=== PATIENT | female | born 1930 | race Caucasian/White ===

== ENCOUNTER 2020-04-20 10:20 | Inpatient (IN) | payer OTHER ==
[~2020-04-20] VITALS: Ht 153.6 cm; Wt 38.1 kg
[2020-04-20 10:22] VITALS: BP 137/54
[2020-04-20 10:50] LABS: BASO # 0.1 10*3/uL (0.0-0.1); BASO % 0.7 % (0.0-1.0); EOS % 0.1 % (1.0-4.0); HEMATOCRIT 27.9 % (37.0-47.0); LYMPH # 1.1 10*3/uL (1.3-4.4); LYMPH % 15.2 % (27.0-41.0); MEAN CELL VOLUME 75.8 fl (81.0-99.0); MEAN CORPUSCULAR HGB 21.2 pg (27.0-31.0); MEAN PLATELET VOLUME 9.8 fl (9.6-12.3); MONO # 0.6 10*3/uL (0.1-1.0); MONO % 8.1 % (3.0-9.0); NEUT # 5.5 10*3/uL (2.3-7.9); NEUT % 75.6 % (47.0-73.0); PLATELET COUNT AUTOMATED 408 10*3/uL (130-400); RED BLOOD COUNT 3.68 10*6/uL (4.10-5.10); RED CELL DISTRI WIDTH 17.7 % (0-14.5); WHITE BLOOD COUNT 7.3 10*3/uL (4.8-10.8)
[2020-04-20 11:03] LABS: BILIRUBIN Negative (Negative); BLOOD Negative (Negative); CLARITY Cloudy (Clear); COLOR Yellow (Yellow); GLUCOSE Negative (Negative); KETONE Negative (Negative); LEUKO ESTERASE 2+ (Negative); NITRITE Positive (Negative); PH 5.5 (4.5-8.0); SPECIFIC GRAVITY 1.015 (1.001-1.030)
[2020-04-20 11:06] LABS: ALBUMIN 3.3 gm/dl (3.1-4.5); ALKALINE PHOSPHATASE 72 U/L (45-117); BUN 15 mg/dl (7-24); CHLORIDE 111 mmol/L (98-107); CREATININE 0.86 mg/dL (0.55-1.02); POTASSIUM 3.2 mmol/L (3.5-5.1); SGOT/AST 12 IU/L (3-35); SGPT/ALT 11 U/L (12-78); SODIUM 147 mmol/L (136-145); TOTAL PROTEIN 6.4 gm/dL (6.4-8.2)
[2020-04-20 11:09] LABS: ETHYL ALCOHOL < 3.0 mg/dl (<3)
[2020-04-20 11:11] LABS: URINE AMPHETAMINES < 1000 (1000ng/ml); URINE BARBITURATES < 200 (200ng/ml); URINE BENZODIAZEPINES < 200 (200ng/ml); URINE CANNABINOIDS (THC) < 50 (50ng/ml); URINE COCAINE < 300 (300ng/ml); URINE METHADONE < 300 (300ng/ml); URINE OPIATES < 300 (300ng/ml); URINE PHENCYCLIDINE < 25 (25ng/ml)
[2020-04-20 11:16] LABS: BACTERIA 4+; WBC 51-100 wbc/hpf (0-5)
--- NOTE | 2020-04-20 11:30 | NUR ---
psychiatric assessment: client presents from [facility], where she just was placed about one day ago, she is very confused and anxious, she is not able to focus, she does not know where she is, she thinks that she came here to return a plate and then we made her come in here, she said she guesses she is getting a test, she is talking out and asking for anyone and everyone to come to her bedside and to call her because he is on his way to get her, she is not aggressive. she is not sleeping or eating. she is not suicidal, she believes that she resides with her in [facility], im not sure if the is living, the daughter is the healthcare POA. the [facility] here did speak with her daughter and the facility perhaps, yesterday. they had suggested that they try to let her get acclimated but the facility sent her here for a psychiatric assessment. i did speak with the u, they are going to consider the admission and let use know.
--- NOTE | 2020-04-20 11:36 | NUR ---
PT FRUSTRATED AND HOLLERING OUT, ALSO BANGING HER WRISTS ON SIDE OF BED RAIL.
[2020-04-20 11:45] LABS: RETICULOCYTE % 1.18 % (0.50-2.50)
[2020-04-20 11:59] LABS: IRON 124 ug/dL (50-170); TOTAL IRON BINDING CAPACITY 408 ug/dl (250-450)
--- NOTE | 2020-04-20 12:10 | NUR ---
SPOKE WITH PETTY FROM [facility] AND SHE STATES THEY WILL ACCEPT PT, SHE WILL CALL POA DAUGHTER JOSSELYN
--- NOTE | 2020-04-20 12:27 | NUR ---
PT OUT OF BED, REDIRECTED BACK TO BED, PROVIDED LUNCH.
--- NOTE | 2020-04-20 13:09 | NUR ---
OMA LIZETTE CELL NUMBER [phone]
--- NOTE | 2020-04-20 13:10 | NUR ---
DAUGHTER IS IN ROOM WITH PT AT THIS TIME.
--- NOTE | 2020-04-20 13:46 | NUR ---
KATHERYN BRYAN a 89 year old F admitted via wheel chair from the EMERGENCY ROOM as a voluntary by POA admission. Arrived on unit at 1346. ALLERGIES: NKA. Vital signs are: [id number] 170/70 SpO2 100% RA. The client's POA verbally consented to the following forms with stated understanding: Authorization For The Release of Medical Information, Clothing List, Consent to Voluntary Admission and Hospitalization, Consent and Release Forms/Receipt of Rights, Acknowledgement of Advance Directive Information, Behavioral Health Consent Form, and Informed Consent of Medications, witnessed by second RN. Admitted under the services of Dr. [facility]. A search was conducted and hazardous articles were removed. Client was oriented to the unit. PETTY MARTE
[2020-04-20] MEDS ORDERED: ASPIRIN ADULT L81 M2 PO (14:03)
[2020-04-20] MEDS ORDERED: BUSPIRONE15 MG PO (14:04)
[2020-04-20] MEDS ORDERED: Clopidogrel75 MG PO (14:04)
[2020-04-20] MEDS ORDERED: IRON325 M1 PO (14:05)
[2020-04-20] MEDS ORDERED: Hydralazine Hyd25 MG PO (14:06)
[2020-04-20] MEDS ORDERED: KLONOPIN0.5 MG PO (14:06)
[2020-04-20] MEDS ORDERED: FUROSEMIDE20 M1 PO (14:07)
[2020-04-20] MEDS ORDERED: METOPROLOL SUCC50 M1 PO (14:07)
[2020-04-20] MEDS ORDERED: POTASSIUM CHLO10 ME4 PO (14:08)
[2020-04-20] MEDS ORDERED: REMERON30 M1 PO (14:08)
[2020-04-20] MEDS ORDERED: RISPERIDONE0.25 M2 PO (14:10)
[2020-04-20] MEDS ORDERED: PRAVASTATIN SOD10 MG PO (14:10)
[2020-04-20] MEDS ORDERED: RIVASTIGMINE TAR3 M1 PO (14:11)
[2020-04-20 14:17] VITALS: BP 170/70
--- NOTE | 2020-04-20 14:20 | NUR ---
CALLED HOSPITALIST #1, MADE AWARE OF NEW CONSULT FOR MEDICAL MANAGEMENT. SPOKE WITH DR. NICHOLS.
--- NOTE | 2020-04-20 14:30 | NUR ---
DR. SMITH ON UNIT TO ASSESS PT. AFTER THIS NURSE SPOKE WITH , CALIXTO, PT IS TO BE A DNRCC PER WISHES OF LIVING WILL. DR. SMITH SIGNED DNR-CC FORM, PLACED IN FRONT OF CHART.
--- NOTE | 2020-04-20 15:28 | NUR ---
ATIVAN INEFFECTIVE. PATIENT STILL ANXIOUS, RESTLESS AND PREOCCUPIED. WILL CONITNUE TO MONITOR.
--- NOTE | 2020-04-20 17:52 | NUR ---
pt increasingly restless and anxious. pt intrusive, grabbing onto other peers, attempting to enter their rooms. kayla no made aware of ativan ineffective, n.o. vistaril 50mg po q4h PRN
--- NOTE | 2020-04-20 18:48 | NUR ---
PATIENT IS IN QUIET ROOM FOLDING CLOTHES. PATIENT IS CALM AND FOCUSED. WILL CONTINUE TO MONITOR.
[2020-04-20 18:54] VITALS: BP 141/70
[2020-04-20 18:55] VITALS: BP 141/70
[2020-04-20 18:56] VITALS: BP 141/70
[2020-04-20 19:55] VITALS: BP 141/70
--- NOTE | 2020-04-20 22:04 | NUR ---
P-CONFUSION, INTRUSIVE I-REDIRECTION WITH 1:1 THERAPEUTIC INTERVENTIONS AND PRESENT REALITY. EDUCATE AND ENCOURAGE MEDICATION COMPLIANCE R-PATIENT MEDICATON COMPLIANT AT HS. PATIENT REFUSED NOURISHMENT BUT PROVIDED FLUIDS AT HS. PATIENT INTRUSIVE WITH OTHER PEERS AND TOUCHING OTHER PEERS. PATIENT GETTING DRESSED INAPPROPRIATELY. PATIENT PUTTING ON JACKET IF PUTTING ON PANTS. PATIENT WITH REDIRECTION PROVIDED THROUGHOUT SHIFT. PATIENT WITH NO HALLUCINATIONS OR DELUSIONS. PATIENT WITH NO HOMICIDAL OR SUICIDAL IDEATIONS. P-CONTINUE TO ENCOURAGE MEDICATION COMPLIANCE, CONTINUE TO PRESENT REALITY, ENCOURAGE GROUP THERAPY WHILE AWAKE
--- NOTE | 2020-04-21 05:50 | NUR ---
PATIENT SLEPT 6 HOURS OF INTERRUPTED SLEEP THROUGHOUT SHIFT. Q 15 MINUTE CHECKS MAINTAINED. 24 HR chart check completed.
[2020-04-21 07:00] VITALS: BP 140/78
[2020-04-21 07:34] LABS: THYROID STIM HORMONE (HS) 0.952 uIU/ml (0.358-4.75)
--- NOTE | 2020-04-21 09:43 | NUR ---
DR TUCKER ON UNIT TO ASSESS PATIENT, UPDATE PROVIDED.
--- NOTE | 2020-04-21 11:25 | NUR ---
P: PATIENT IS TIRED, SAD, DEPRESSED, ANXIOUS, RESTLESS. I: 1:1 FOR EMOTIONAL SUPPORT. PROVIDE SPACE NEEDED. ALLOW PATIENT TO VERBALIZE FEELINGS. R: PATIENT IS ALERT TO SELF ONLY. PATIENT IS PLEASANTLY CONFUSED. PATIENT STATES SHE IS SAD AND MISSES HER AND IS UNABLE TO UNDERSTAND WHY HE CANNOT VISIT. PATIENT STATES SHE IS ANXIOUS AND HAS BEEN PRAYING A LOT ABOUT IT. PATIENT DENIES SI/HI STATES "I DONT WANT TO HURT ANYBODY". PATIENT IS INTRUSIVE AND RESTLESS. PATIENT DOES PARTICIPATE DURING ASSESSMENT. PATIENT IS AMBULATORY WITH STEADY GAIT. PATIENT DENIES HALLUCINATIONS OR DELUSIONS. DOES NOT APPEAR TO BE RESPONDING TO INTERNAL STIMULI. PATIENT IS CONTINENT OF URINE SO FAR THIS SHIFT. PATIENT IS MEDICATION COMPLIANT WITH EDUCATION. P: WILL CONTINUE TO MONITOR MOODS/BEHAVIORS. Q15 MINUTE SAFETY CHECKS MAINTAINED. WILL CONTINUE TO ENCOURAGE MEDICATION COMPLIANCE. WILL CONTINUE TO ENCOURAGE GROUP ACTIVITIES. WILL CONTINUE TO PROVIDED 1:1 FOR EMOTIONAL SUPPORT AND PROVIDE SPACE NEEDED. SET UP FOR MEALS. INTAKES ARE GOOD WITH ADEQUATE FLUIDS. P
--- NOTE | 2020-04-21 12:18 | NUR ---
PSYCHO SOCIAL HX COMPLETED THIS DATE.
--- NOTE | 2020-04-21 13:01 | NUR ---
PATIENT IS FRANTIC, ANXIOUS, AND INTRUSIVE. PATIENT IS UNABLE TO CALM DOWN. SHE IS VERY WORRIED ABOUT HER , HER BELONGINGS. SHE IS EXTREMELY CONFUSED. UNABLE TO BE REDIRECTED. PATIENT FOLLOWING RN'S, HOUSEKEEPING, AND OTHER PATIENTS. PATIENT IS ACCUSING STAFF OF LYING. WILL CONTINUE TO MONITOR.
--- NOTE | 2020-04-21 13:33 | NUR ---
PRN ATIVAN ADMINISTERED PO FOR INCREASED ANXIETY. WILL CONTINUE TO MONITOR.
--- NOTE | 2020-04-21 15:30 | NUR ---
PATIENT IN DINING ROOM DISROBING. INFORMED PATIENT THAT WAS INAPPROPRIATE AND ATTEMPTED REDIRECTION BUT WAS UNSUCCESSFUL. PATIENT REMAINS VERY CONFUSED. WILL CONTINUE TO MONITOR.
--- NOTE | 2020-04-21 17:03 | NUR ---
PATIENT IS DISRUPTIVE AND INTRUSIVE IN DINING ROOM. PATIENT IS MAKING OTHER PATIENTS IRRITABLE AND ANGRY. PATIENT IS CONFUSED AND UNABLE TO BE REDIRECTED.
--- NOTE | 2020-04-21 19:48 | NUR ---
24 HR chart check completed.
[2020-04-21 20:00] VITALS: BP 154/75
--- NOTE | 2020-04-21 21:39 | NUR ---
P-CONFUSION, ANXIOUS, INTRUSIVENESS I-REDIRECT & REORIENT FREQUENTLY, ADMINISTER MEDS, MONITOR SLEEP R-PT IS CONFUSED WITH MEMORY DEFICITS. ALERT TO PERSON ONLY. SHE IS EXTREMELY HARD TO REDIRECT & HAS WANDERS IN & OUT OF PTS ROOMS. INTRUSIVE WITH PERSONAL SPACE. HAS FREQUENTLY ASKED, "WHERES LIZETTE?. WHEN'S HE COMING HOME". TOOK HS MEICATIONS WHOLE. P-CONTINUE TO MONITOR
--- NOTE | 2020-04-21 22:04 | NUR ---
PT RESTLESS. CONTINUES TO ATTEMPT TO WANDER IN & OUT OF OTHER PTS ROOMS DESPITE REDIRECTION. LOOKING FOR HER . MEDICATED WITH ATIVAN 1 MG PO @ 2151
--- NOTE | 2020-04-21 23:33 | NUR ---
ATIVAN HAS BEEN INEFFECTIVE. PT CONTINUES TO GET UP & LOOK FOR HER & ATTEMPTS TO GO INTO OTHER PTS ROOMS. MEDICATED WITH VISTARIL 50 MG PO @ 2320.
--- NOTE | 2020-04-22 01:45 | NUR ---
VISTARIL INEFFECTIVE. PT CONTINUES TO TO GET IN & OUT OF BED WITH CONFUSION OF LOOKING FOR HER & WANDERING & ATTEMPTING TO GO INTO OTHER PTS ROOMS. NUMEROUS DIRECTIVES GIVEN & PT IS UNRECEPTIVE & REPEATS HERSELF. BECOMES IRRITABLE & ANXIOUS WHEN REDIRECTED. MEDICATED WITH PRN GEODON 10 MG IM @ 0044
--- NOTE | 2020-04-22 05:38 | NUR ---
PT HAS SLLET PAST 129 WITH N SIGN
[2020-04-22 07:28] VITALS: BP 152/64
--- NOTE | 2020-04-22 08:30 | NUR ---
Treatment Plan meeting was held this a.m. with NEEL Mills, RN, AT, ALBERT-S and Public Works Commissioner. Plan for discharge Next Week. Pt. came to [facility] from [facility]. Will reach out to facility today to discuss discharge Planning.
--- NOTE | 2020-04-22 08:50 | NUR ---
Spoke with Nika at [facility]. Pt. family brought Pt. for a Skilled stay after PCP referral and Pt. was not very receptive to being admitted. Less than 24 hours later she was extremely anxious, wouldn't eat, dry heaving due to anxiety, Would not stay in her room. Family was called and they were possibly going to allow them to Put on PPE and sit with her in isolation due to the circumstance and that family declined saying that they felt her behaviors would not improve and it was not worth the risk. Medication adjustments were made with no resolution to anxiety or behaviors. [facility] states that they cannot meet Pt. needs Properly and she cannot return to the building and family was not willing to come sit with her. Nika is unsure if the Spiral Runner at [facility] has contacted the family to notify them that patient cannot return.
--- NOTE | 2020-04-22 11:46 | NUR ---
AM GROUP PT WAS PRESENT AT THE START OF MORNING GROUP THERAPY SEATED AT A TABLE STILL EATING BREAKFAST. PT WAS QUIET AND CONTENT BUT KEPT STATING THAT SHE NEEDED TO GET UP AND WALK. PT STOOD AND WAS VERY UNSTEADY. PT SAT IN A COMFY CHAIR AND WAS FEARFUL OF BEING ALONE. PT DID NOT WANT ME TO LEAVE HER SIDE. PT NEEDED TO USE THE RESTROOM BUT WANTED ME TO COME WITH HER. A NURSE TOOK HER, SHE WAS GONE LESS THAN 5 MINUTES AND UPON RETURN WANTED TO KNOW "WHERE IS THE GIRL THAT WAS JUST SITTING WITH ME?" PT IS PLEASANTLY CONFUSED AND NEEDED CONSTANT REMINDERS THAT SHE IS IN THE HOSPITAL AND SAFE. PT IS VERY FEARFUL OF BEING LEFT ALONE.
--- NOTE | 2020-04-22 12:07 | NUR ---
PT ANXIOUS AND RESTLESS. INTRUSIVE WITH PERSONAL SPACE AND OTHER PATIENTS. UNABLE TO REDIRECT PT. PT STATES SHE IS NERVOUS AND AFRAID TO BE ALONE. ONCE A PATIENT OR STAFF MEMBER WALKS AWAY THE PATIENT ANXIOUSLY SEEKS OUT OTHER STAFF OR PATIENTS. WHEN TOILETING PATIENT SHE WANTS STAFF TO STAY WITH HER UNTIL SHE IS DONE. PATIENT STATES HER STOMACH IS IN KNOTS FROM BEING ANXIOUS AT THIS TIME. PRN VISTARIL GIVEN AT THIS TIME TO DECREASE ANXIETY. WILL CONTINUE TO MONITOR PATIENT FOR EFFECTIVENESS OF MEDICATION.
--- NOTE | 2020-04-22 13:51 | NUR ---
PRN VISTARIL INEFFECTIVE. PT CONTINUES TO BE ANXIOUS. ATTEMPTED TO REDIRECT PT WITH WORD FINDS, PUZZLES, MUSIC, AND CARDS. ALL HAVE BEEN INEFFECTIVE. WILL CONTINUE TO MONITOR PT. PRN ATIVAN GIVEN AT THIS TIME. PT CONTINUES TO LOOK FOR HER , PURSE, KEYS, AND PARENTS. WILL MONITOR EFFECTIVENESS OF MEDICtion.
--- NOTE | 2020-04-22 14:38 | NUR ---
ativan effective at this time. pt sitting quietly while participating in group.
--- NOTE | 2020-04-22 14:59 | NUR ---
PT IN GROUP AND CONTINUES TO BE ANXIOUS. PT 1:1 WITH ACTIVITIES. EMBROIDERY FINISHER MADE A JOKE WITH ANOTHER PT AND THAT PT LAUGHED., THIS PATIENT YELLED AT THE OTHER PT FOR LAUGHING AT HER. ANOTHER PT LEFT THE DINNINGROOM AND THIS PT FOLLOWED AFTER HER. WHEN EXPLAINED TO THIS PT THAT THE OTHER PERSON IS A PATIENT WELL AND WANTS SOME ALONE QUIET TIME. THIS PT STATED "OH NO I DONT THINK SHE DOES". THIS PATIENT YELLINGDOWN THE SILVA FOR THE OTHER PT. PT REDIRECTED TO SIT WITH A STAFF IN A QUIET ROOM. EXPLAINED TO PT HOW SHE IS MAKING OTHER PTS FEEL. THIS PATIENT IS NOT RECEPTIVE AT THIS TIME. WILL CONTINUE TO MONITOR BEHAVIORS AT THIS TIME.
--- NOTE | 2020-04-22 15:16 | NUR ---
CALL PLACED TO DR LAMB REGARDING PT'S BEHAVIORS AND RECENT PRN MEDICATIONS. NEW ORDERS RECEIVED.
--- NOTE | 2020-04-22 15:21 | NUR ---
Spoke with pt's Suraj by phone. Gathered additional pt information. Informed Suraj that Itzel Corcoran [facility] search planner confirmed with Kevon Rodriguez that pt would not be able to return there. Discussed this further. Discussed other NF options. Suraj stated that he only wanted pt to be at [facility] or another NF in [facility]. When asked about [place] NFs, Suraj stated that he didn't care for any of them. Suraj then asked if this board writer would speak with his daughter Charly about this.
--- NOTE | 2020-04-22 15:29 | NUR ---
Spoke with pt's daughter Charly Monroy by phone. Discussed pt not being able to return to [facility]. Discussed discharge options. Charly would prefer pt not return home with pt's . Discussed NF options. Charly stated that pt is on a waiting list at [facility]. Charly would also be interested in [facility] or [facility] in [place] for pt.
--- NOTE | 2020-04-22 15:45 | NUR ---
PM GROUP PT WAS PRESENT FOR AFTERNOON GROUP THERAPY AND MANY ATTEMPTS WERE MADE TO ENGAGE PT IN ACTIVITIES. PT WAS VERY ANXIOUS AND REPEATED THE SAME QUESTIONS EVERY FEW SECONDS. PT WAS AGITATING PEERS, ONE KEPT LEAVING THE ROOM. PT COULD NOT BE REDIRECTED AND I WALKED HER TO HER ROOM AND BACK HOPING TO CALM HER. PT CONTINUED TO FRET AND WAS A DISRUPTION TO THE SHULTZ MILIEU. PT NURSE WAS NOTIFIED AND ADDRESSED THE ISSUE. PT DID TOUCH A MALE PEER AND KEPT INSISTING THAT HE WAS LAUGHING AT HER. PT HAD TO BE MOVED AWAY FROM THE PEER.
--- NOTE | 2020-04-22 16:11 | NUR ---
INTIAL CLINICALS FAXED TO [facility] [phone]
[2020-04-22 19:12] VITALS: BP 127/56
--- NOTE | 2020-04-22 21:27 | NUR ---
Patient alert to self only with confusion noted. Mood is confused and intrusive. No s/s of any responding to internal stimuli noted at this time. Patient compliant with HS medications without any difficulty. Attempted to provide emotional but patient refused. Redirected/reoriented multiple times when needed. Plan to continue to encourage medication compliance. Also continue to offer emotional support and continue to redirect/reorient when needed/appropriate. Will continue to monitor moods/behaviors. Q 15 minute safety checks continued and maintained. See [facility] flowsheet for further documentation.
--- NOTE | 2020-04-23 00:12 | NUR ---
24 HR chart check completed.
--- NOTE | 2020-04-23 05:42 | NUR ---
Patient slept approx. 5 hours of interrupted sleep throughout shift. Q 15 minute safety checks continued and maintained.
[2020-04-23 08:00] VITALS: BP 168/60
--- NOTE | 2020-04-23 08:30 | NUR ---
Treatment Plan meeting was held this a.m. with Dr. Epperson via telephone, MANAGER EXCHANGE Lina, RN, AT, SHOES HAND SEWER-S and Jig Mill Operator. Plan for discharge Next Week. Pt. requires Alternate Placement due to [facility] being unable to meet Pt needs. Pt. daughter has requested referrals to [facility].
--- NOTE | 2020-04-23 08:59 | NUR ---
PATIENT STILL ASLEEP AT THIS TIME. Q 15 MINUTE SAFETY CHECKS MAINTAINED.
--- NOTE | 2020-04-23 09:58 | NUR ---
PT AWOKE AND HAS INCREASED CONFUSION. PT CONTINUES TO ASK WHERE LIZETTE IS. EXPLAINED TO THE PT THAT HER IS AT HOME AND SHE IS IN THE HOSPITAL. PT STATED NO THATS NOT RIGHT. PT UNRECEPTIVE TO REORIENTATION. PT BELIEVES SOMETHING IS WRONG. ASSURED PT THAT SHE IS SAFE AND IN THE HOSPITAL AND HER IS SAFE AT HOME. PT REFUSED BREAKFAST AT THIS TIME. WILL CONTINUE TO MONITOR PT WITH Q15 MINUTE SAFETY CHECKS.
--- NOTE | 2020-04-23 11:00 | NUR ---
PHYSICAL THERAPY Physical Therapy evaluation completed on 3N with full evaluation to follow. Low complexity skilled PT evaluation per chart review and evaluation, [address]. Recommend physical therapy per plan of care and SNF upon discharge. Thank you for this referral. Jayashree Christine,PT,DPT
--- NOTE | 2020-04-23 11:38 | NUR ---
P: CONFUSION, BANGING ON THE TABLE, IRRITABLE, ANXIOUS, RESTLESS, DISRUPTIVE. I: 1:1 FOR EMOTIONAL SUPPORT. REDIRECTION/REORIENTATION NEEDED. ALLOW PATIENT TO VERBALIZE FEELINGS. R: PATIENT ALERT TO SELF ONLY. VERY CONFUSED. PATIENT IS ASKING EVERY FEW SECONDS "WHERE IS MY MOM I KNOW SHE WAS HERE WITH ME, WHERE DID SHE GO" PATIENT HAS BEEN REORIENTED/REDIRECTED MULTIPLE TIMES WITHOUT ANY SUCCESS. PATIENT IS BECOMING AGITATED AND IS BANGING ON THE TABLE SAYING "I WANT MY MOTHER". PATIENT UNABLE TO SIT STILL, VERY FIGETY. MEDICATION COMPLIANT WITH EDUCATION. PATIENT IS IN GERICHAIR AT THIS TIME D/T INCREASED CONFUSION AND MEDICATION. SET UP FOR MEALS. 1 ASSSIT WITH ACTIVITIES OF DAILY LIVING. PATIENT IS BOTH CONTINENT AND INCONTIENT OF BLADDER THIS SHIFT. PATIENT DID PARTICIPATE IN GROUP ACTIVITY. P: WILL CONTINUE TO MONITOR MOODS/BEHAVIORS. WILL ENCOURAGE MEDICATION COMPLIANCE. WILL ENCOURAGE GROUP ACTIVITY. Q15 MINUTE SAFETY CHECKS CONTINUED AND MAINTAINED.
--- NOTE | 2020-04-23 11:41 | NUR ---
AM GROUP PT WAS PRESENT FOR MORNING GROUP THERAPY BUT IS UNABLE TO PARTICIPATE AT THIS TIME DUE TO COGNITIVE IMPAIRMENT. PT WAS VERY CONFUSED AND ANXIOUS BUT NOT BAD YESTERDAY. PT ASKED THE SAME QUESTIONS OVER AND OVER AGAIN AND WENT FROM BEING A YOUNG GIRL WANTING HER MOTHER TO WANTING TO SEE HER . PT COULD NOT BE REDIRECTED BUT WOULD PAUSE FOR A FEW MINUTES BEFORE ASKING AGAIN.
--- NOTE | 2020-04-23 13:00 | NUR ---
PT TOILETED AT THIS TIME. PT ANXIOUSAND LOOKING FOR LIZETTE. ATTEMPTED TO LET PT TALK TO LIZETTE ON THE PHONE; HOWEVER IT WAS NOT EFFECTIVE. PT BECAME MORE ANXIOUS BUT WAS REDIRECTABLE.
--- NOTE | 2020-04-23 13:20 | NUR ---
OT NOTE Occupational therapy order received, chart reviewed, and attempted to see patient on the [facility] this afternoon. Patient was seated in the heriberto chair upon arrival and was lethargic. She responded to her name however would not maintain opened eyes for greater than 10-15 seconds with verbal and tactile cues to arouse. Patient declining an OT evaluation at this time stating "I'm too tired...and is my coming to get me?" Discussed with nurse that patient was lethargic and did not want to participate in therapy at this time. Per nursing staff, patient was more alert and walking with the FWW this AM. Will check back at a later date for completion of an OT eval. Thank you. Holly Phelps, OTR/L
--- NOTE | 2020-04-23 13:33 | NUR ---
ARASELI VALENZUELA RESIDENT CARE AID ON UNIT TO ASSESS PATIENT, UPDATE PROVIDED.
--- NOTE | 2020-04-23 15:42 | NUR ---
PM GROUP PT WAS PRESENT FOR AFTERNOON GROUP THERAPY FULLY RECLINED IN A DAKSHA CHAIR SLEEPING. PT WAS NOTED TO SNORE AND DID NOT WAKE DURING GROUP.
--- NOTE | 2020-04-23 15:49 | NUR ---
PATIENT REPEATEDLY SAYING "BUT DO I HAVE TO GO TO THE HOSPITAL TODAY?" THIS NURSE REORIENTED AND REDIRECTED PATIENT WITH NO SUCCESS. PATIENT REMAINS CONFUSED. PATIENT GETTING ANXIOUS, STATES "I CAN'T BE GOING TO THE HOSPITAL TONIGHT" "IM AT HOME, I CANT BE AT A HOSPITAL" AND "I DONT UNDERSTAND". PT ASKING REPEATEDLY "WHEN IS LIZETTE COMING HOME?" WILL CONTINUE TO REORIENT/REDIRECT PATIENT. Q15 MINUTE SAFETY CHECKS MAINTAINED AND CONTINUED.
[2020-04-23 19:20] VITALS: BP 132/68
--- NOTE | 2020-04-23 22:21 | NUR ---
P-INTRUSIVE/DISRUPTIVE, RESTLESS, YELLING OUT. I-PROVIDED FREQUENT REORIENTATION, REDIRECTION AND 1:1 EMOTIONAL SUPPORT. HS SNACK GIVEN AND FLUIDS. ADLS X1 ASSIST TOILETING PROVIDED. ADMINISTERED MEDICATIONS PER PHYSICIANS ORDERS. OFFERED REST AND REPOSITIONING. R-REORIENTATION, REDIRECTION AND 1:1 SOMEWHAT EFFECTIVE. HS SNACK CONSUMED 100%, ASSISTED TO TOILET CONTINENT OF URINE. PT RESTING IN BED AT THIS TIME. MEDICATION COMPLIANT. P-WILL CONTINUE TO PROVIDE REDIRECTION NEEDED. WILL CONTINUE TO MONITOR FOR MOODS AND BEHAVIORS. Q 15 MIN CHECKS MAINTAINED.
--- NOTE | 2020-04-24 03:16 | NUR ---
24 HR chart check completed.
--- NOTE | 2020-04-24 05:31 | NUR ---
PT SLEPT PAST 2230 WITH 2 BRIEF AWAKENINGS FOR TOILETING.
--- NOTE | 2020-04-24 07:30 | NUR ---
PHYSICAL THERAPY Patient was resting soundly in bed when approached for therapy and per discussion with [facility] staff was informed that patient did not sleep much due to having a bad night. Staff requested Therapist to check back later today to attempt treatment and will continue per POC as able. Bill Powell, PRODUCTION COUNTER
[2020-04-24 07:41] VITALS: BP 148/58
--- NOTE | 2020-04-24 09:15 | NUR ---
ARASELI VALENZUELA CNP ON UNIT TO ASSESS PATIENT.
--- NOTE | 2020-04-24 11:37 | NUR ---
P: DEPRESSED MOOD WITH CONFUSION. PATIENT STATED "YES, I FEEL A LITTLE DEPRESSED" I: ONE ON ONE FOR EMOTIONAL SUPPORT, REDIRECTION/ORIENTATION PROVIDED. ENCOURAGE TO ATTEND GROUP SESSION. R: PATIENT IS ALERT TO PERSON WITH CONFUSION. LONG/SHORT TERM MEMORY DEFICITS. MOOD IS DEPRESSED. DENIES ANY HALLUCINATIONS, DELUSIONS, HI/SI OR PAIN. MEDICATION COMPLAINT. Q 15 MINUTE SAFETY CHECKS MAINTAINED. 1 PERSON ASSIST WITH ACTIVITIES OF DAILY LIVING, CONTINENT OF BOWEL AND BLADDER. SET UP FOR MEALS WITH ONE ASSIST. INTAKES ARE FAIR WITH ENCOURAGEMENTTO DRINK FLUIDS. 1 PERSON ASSIST WITH AMBULATION DUE TO UNSTEADY GAIT. NO AGGRESSION OBSEVERED. P: CONTINUE TO MONITOR FOR AGGRESSION, MOOD; PROVIDE ONE ON ONE, REDIRECTION/ORIENTATION AND ENCOURAGE TO ATTEND GROUP SESSIONS.
--- NOTE | 2020-04-24 11:40 | NUR ---
AM GROUP/MOVIE PT WAS PRESENT FOR MORNING GROUP THERAPY RECLINED IN A DAKSHA CHAIR NAPPING. PT WOKE AND HAD SOMETHING TO EAT. PT WAS MUCH MORE CALM THIS MORNING, LESS ANXIOUS, AND REDIRECTABLE. PT WAS NOTED TO BE SHAKING HER HEAD SEVERAL TIMES IF TO BE "CLEARING" IT. PT NURSE WAS NOTIFIED. PT EXHIBITED NO ADVERSE BEHAVIORS WHILE IN GROUP.
--- NOTE | 2020-04-24 12:32 | NUR ---
PASRR completed online in [facility]. Requires Level two assessment. [facility]
--- NOTE | 2020-04-24 14:35 | NUR ---
Occupational Therapy evaluation completed on 3 with full eval to follow. Precautions include fall risk;bed/chair alarm,delusional,anxious, min a transfers, min/mod assist for ADLs, moderate complexity level 07996. Recommend OT to determine best ability to function and 24 hr supervision/assist and /or LTC upon d/c. Thank you for this referral. Meggan Mccollum OTR/L
--- NOTE | 2020-04-24 15:04 | NUR ---
Pt was reclining in a gerichair this AM and calling to this report writer to come to her. Pt appeared anxious and asked this report writer multiple times "Am I okay? Am I going to be alright?" Reassured pt. Pt requested that this report writer not leave her. Remained with pt and continued to calm her. Pt complained of being cold. Wrapped pt in a heated blanket, which assisted in calming pt.
--- NOTE | 2020-04-24 15:22 | NUR ---
Spoke with Sherice Peng at [facility] and [facility]. Pt. is known to them and has previously been at [facility]. Pt. insurance is out of Network and Pt. would not have a Skillable Need. Family would have to Private Pay. Advised that we would speak to family and discuss discharge Plans.
--- NOTE | 2020-04-24 15:38 | NUR ---
PM GROUP PT WAS PRESENT FOR AFTERNOON GROUP THERAPY RECLINED IN A DAKSHA CHAIR SITTING NEXT TO HER NURSE. PT WAS CONSTANTLY ASKING THE SAME QUESTIONS AND STATING OVER AND OVER AGAIN, "I WANT TO GO, WHY WON'T YOU LET ME GO HOME, YOU'RE TRYING TO KILL ME" PT COULD NOT BE REDIRECTED. PT WAS TAKEN FOR A WALK AND THIS DID NOT HELP. PT BECAME AGITATED AND BEGAN POUNDING ON THE ARM OF THE CHAIR, POUNDING HER FEET, ATTEMPTING TO GET UP ON HER OWN AND BECOMING VERBALLY ABUSIVE. PT REQUESTED TO WALK AND WAS FOLLOWED CLOSELY SHE USED THE WALKER. PT WAS VERY UNSTEADY AND THREATENED TO RUN THE WALKER INTO THE WALL OR THROW IT OUT OF THE WINDOW.
--- NOTE | 2020-04-24 17:22 | NUR ---
P: YELLING OUT, BEING DISRUPTIVE TO OTHER, REPEATIVE, WANTING TO LEAVE, UNABLE TO REDIRECT, UP AND DOWN FROM DAKSHA CHAIR TO BED WITH ASSIST, BECOMING MORE IRRITABLE AND DEMANDING. I: REDIRECTION/ORIENTATION, ONE ON ONE, ACTIVITY PROVIDED, CHANGE OF ENVIRONMENT. R: INEFFECTIVE. PRN VISTARIL 50MG PO GIVEN. P: CONTINUE TO MONITOR BEHAVIORS AND MONITOR EFFECTIVENESS OF PRN MEDICATION.
[2020-04-24 19:09] VITALS: BP 160/60
--- NOTE | 2020-04-24 21:25 | NUR ---
P-INTRUSIVE/DISRUPTIVE, RESTLESS, YELLING OUT. I-ASSESSED FOR SI/HI, HALLUCINATIONS/DELUSIONS AND/OR PARANOIA. PROVIDED FREQUENT REORIENTATION, REDIRECTION AND 1:1 EMOTIONAL SUPPORT. HS SNACK REFUSED BUT ACCEPTED FLUIDS. ADLS X1 ASSIST TOILETING PROVIDED. ADMINISTERED MEDICATIONS PER PHYSICIANS ORDERS. OFFERED REST AND REPOSITIONING. R-DENIES SI/HI, NO HALLUCINATION, DELUSIONS AND OR PARANOIA NOTED. PT ACCEPTED REORIENTATION, REDIRECTION AND 1:1 EMOTIONAL SUPPORT. ASSISTED TO TOILET CONTINENT OF URINE. PT RESTING IN BED AT THIS TIME. MEDICATION COMPLIANT. P-WILL CONTINUE CURRENT TREATMENT PLAN. WILL CONTINUE TO PROVIDE REDIRECTION NEEDED. WILL CONTINUE TO MONITOR FOR MOODS AND BEHAVIORS. Q 15 MIN CHECKS MAINTAINED.
--- NOTE | 2020-04-24 23:26 | NUR ---
PT UPSET, YELLING OUT, BANGING ON FURNITURE, ANXIOUS AND AGITATED. PROVIDED REDIRECTION, REORIENTATION, AND 1:1 EMTIONAL SUPPORT. ALL NON-PHARMACOLOGICAL INTERVENTIONS INEFFECTIVE. PRN VISTARIL 50MG PO GIVEN.
--- NOTE | 2020-04-25 00:26 | NUR ---
PT SHOWERED AND TOILETED. RESTING IN BED AT THIS TIME. PRN VISTARIL EFFECTIVE.
--- NOTE | 2020-04-25 00:45 | NUR ---
24 HR chart check completed.
--- NOTE | 2020-04-25 05:44 | NUR ---
PT SLEPT APPROX 6 HOURS WITH INTERMITTENT AWAKENINGS.
--- NOTE | 2020-04-25 07:15 | NUR ---
PHYSICAL THERAPY Patient seen this am for therapy visit and was just awakening supine in bed upon therapist arrival. Patient identified by name / and joined by OT captain assistant for observation as patient transfers supine to sit EOB, CGA x 1. Patient was initially a little sluggish needing a minute or so of static EOB to collect herself. Patient completed sit to stand CGA and ambulated with use of wh walker, CGA, 75'x 1, demonstrating slow, cautious gait pattern and mild R side gait deviationn / drifting. Patient received v/c for increased stride and "head up" posture and returned to Pratima chair in activity room with body alarm for safety. Patient remained under U staff Supervision awaiting breakfast and will continue per POC as tolerated, total treatment time 14 minutes. Bill Powell, SUPERVISOR MAILS
--- NOTE | 2020-04-25 07:20 | NUR ---
OT NOTE Prior to coming to the floor spoke with nurse Colmenares and reported that therapy was coming to treat this pt. Nurse gave approval. Pt was seen this A.M. 1:1 for 20 minute OT session with INSIDE SALES TERRITORY MANAGER and nursing staff present for observation only. Upon arrival pt was supine in bed. Pt identified by name and and had no complaints at this time other than fatigue. Pt transferred supine to sit EOB with SBA. While sitting EOB pt doffed gown and donned pants and shirt with Kelly for inital start over her toes and arms. Sit to stand completed from bed level with Kelly due to low surface with use of w/w for UE support. Upon inital rise pt presented with retrograde posture that required Kelly to correct. Challenged pt's static standing tolerance needed for increased I in self care tasks and functional transfers, pt was able to tolerate aprox 4 minutes at a time before sitting due to fatigue. Functional mobility completed to the dining mast with CGA and use of w/w where she was left sitting upright inthe jose chair with body alarm activated and under U staff supervision. COntinue with rec D/C plan to SNF/LTC. YARELI Nava/Sri
[2020-04-25 08:00] VITALS: BP 146/56; BP 160/73
[2020-04-25 08:25] VITALS: BP 146/56
--- NOTE | 2020-04-25 09:00 | NUR ---
Treatment Plan meeting was held this a.m. with Dr. Epperson RN, AT, IMPORT/EXPORT AGENT-S and Wall Taper Helper in attendance. Plan for discharge Next week. Working on Placement. Will reach out to family today to discuss discharge Planning.
--- NOTE | 2020-04-25 09:16 | NUR ---
ON UNIT TO SEE PT AT THIS TIME, UPDATE GIVEN. PT AWAKE, ALERT AND VERBAL. RESPS EASY AND EVEN ON ROOM AIR. ATE BREAKFAST. NO DISTRESS NOTED.
--- NOTE | 2020-04-25 11:44 | NUR ---
AM GROUP PT WAS PRESENT FOR MORNING GROUP THERAPY SEATED IN A DAKSHA CHAIR WORKING A PUZZLE WITH A NURSE. PT WAS FRETFUL BUT ABLE TO BE DIRECTED BACK TO THE PUZZLE FOR A SHORT PERIOD. NURSING STUDENTS ENTERED AND ONE SAT AND WORKED WITH PT. PT WAS WOOZY, FIGHTING SLEEP AND ATTEPTED TO STAND SEVERAL TIMES. PT WAS REPEATEDLY STATING, "PLEASE DON'T LEAVE ME." "HOLD MY HAND" PT WAS FULLY RECLINED, GIVEN WARM BLANKETS AND WAS ABLE TO FALL ASLEEP.
--- NOTE | 2020-04-25 13:16 | NUR ---
Pt requiring very frequent/nearly constant one one one attention from staff d/t anxious and restless behaviors. Pt repetitive, continually stating "Someone, help me! Am I ok? Don't be mad at me, Aniyah. Aniyah, don't yell at me". Advised pt no one is angry with her or yelling at her. Advised pt she is in the hospital and we are here to help. Pt ate only a few bites of lunch despite encouragement and help from staff. Pt asked to go to the bathroom, this RN assisted pt to bathroom. Pt continent of urine, no BM at this time, pt noted passing gas, +BSx4 quadrants. Pt then asking repeatedly to lay down in bed, pt states "I just want to lay down and take a nap". This RN assists pt to bed to position of comfort, warm blankets given, education provided re: fall risk precautions. Pt states "Ok. I won't get up. Anderson you come get me when it's time to eat?" Advised pt this RN would get her for dinner. Bed alarm activated. Within 5 minutes bed alarm sounding, this RN to pt's room immediately. Pt getting up unassisted. Pt again reminded of fall risk precautions. This RN attempts to assist pt to wheelchair, pt states "No. I want to lie down". RN attempts to take pt to bed. As soon as pt sees the bed she states "No. I want to get up". Again this RN assists pt to w/c and up to nurse's station for close monitoring. Pt now fixated on her watch. Pt is unreceptive to redirection or reality presentation at this time. Pt remains in front of nurse's station for close observation by RN.
--- NOTE | 2020-04-25 14:36 | NUR ---
Pt remains very confused with extremely poor short-term memory. Pt was pleasant with this typewriter ribbon winder during breakfast as this typewriter ribbon winder assisted pt with her breakfast. Later, pt continually requested her watch. It was decided by RN that pt could have her watch. This typewriter ribbon winder provided pt with her watch. Pt voiced appreciation and then asked if it was truly her watch.
--- NOTE | 2020-04-25 14:58 | NUR ---
P- CONFUSED, RESTLESS, ANXIOUS, CALMS WITH 1:1 I- ORIENTATION, MOOD AND BEHAVIORS ASSESSED. PROVIDED WITH FREQUENT REORIENTATION AND REDIRECTION, EMOTIONAL SUPPORT AND 1:1 NEEDED. MEDICATIONS GIVEN ORDERED. ASSISTANCE WITH ADL CARE PROVIDED NEEDED. R- PT IS ALERT WITH CONFUSION. RESPS EASY AND EVEN ON ROOM AIR. MOOD ANXIOUS AT TIMES WITH FLAT AFFECT. SPEECH IS SOFT, COHERENT, ABLE TO MAKE NEEDS KNOWN WITHOUT DIFFICULTY. PT DENIES SI/HI, INTENT OR PLAN. PT DENIES HALLUCINATIONS, NO RESPONSE TO INTERNAL STIMULI NOTED. PT FEARFUL AT TIMES, STATES "I'M SCARED". PT UNABLE TO STATE WHAT IT IS THAT SHE IS AFRAID OF. PT FIXATES ON DIFFERENT THINGS THROUGHOUT THE DAY SUCH HER WATCH, GETTING A BATH, WHAT TIME DINNER IS AND GOING TO BED. FREQUENT REORIENTATION, REDIRECTION, 1:1 AND EMOTIONAL SUPPORT PROVIDED. ASSURED PT SHE IS SAFE HERE IN THE HOSPITAL. PT IS MEDICATION COMPLIANT. COMPLIANT WITH HOC. NO AGGRESSIVE BEHAVIORS. NO DISTRESS NOTED. P- PLAN TO CONTINUE CURRENT TREATMENT.
--- NOTE | 2020-04-25 15:59 | NUR ---
Spoke with Patient Daughter Charly via telephone. Notified that [facility] are unable to skill pt. due to Cognitive needs and Pt. does not have a secondary Payor at this time so she would need to be Private Pay. Daughter states If Pt. is Private Pay she would prefer she is in a [place] Facility. Daughter states that Pt. is on the waiting List at [facility]. Call placed to facility and Spoke with Sierra Emery Wheel Worker and Bias Binding Folder who states she is on the Short List but the facility is currently in Outbreak Mode and they will notify family when a bed becomes available. Sierra asked that the daughter call her tommorow to discuss the waiting list.
--- NOTE | 2020-04-25 16:16 | NUR ---
[facility] returns. Pt. is approved for Nursing Facility. Copy placed on Chart.
--- NOTE | 2020-04-25 17:10 | NUR ---
NO BM X3 DAYS. MOM 30ML PO GIVEN AT THIS TIME FOR RELIEF OF CONSTIPATION. +BSX4. PT WITH NO COMPLAINTS. WILL MONITOR FOR EFFECT.
--- NOTE | 2020-04-25 17:54 | NUR ---
DR. PATE NOTIFIED OF MANUAL BP 170/68 WITH PULSE OF 65.
--- NOTE | 2020-04-25 18:02 | NUR ---
PT CONTINUES TO BE EXTREMELY ANXIOUS AND RESTLESS. PT REQUIRING CONTINUOUS ONE ON ONE ATTENTION FROM STAFF D/T BEHAVIORS. PT HAS POOR SAFETY AWARENESS, CONTINUALLY TRYING TO GET UP AND WALK DESPITE EXTREMELY UNSTEADY GAIT REQUIRING STAFF TO REMAIN AT PT'S SIDE AT ALL TIMES TO ENSURE SAFETY. PT ASKING THE SAME QUESTIONS REPEATEDLY, ALL ATTEMPTS TO REDIRECT PT INEFFECTIVE. PT'S BEHAVIORS AND ANXIETY CONTINUING TO INCREASE. PT BANGING HANDS ON FURNITURE, CHAIRS AND WINDOWS. FOOD AND FLUIDS GIVEN, TOLIETED, SEVERAL ACTIVITIES GIVEN ALL WITHOUT ANY POSITIVE EFFECT. THIS RN HAS REMAINED AT PT'S SIDE, FEEDING PT DINNER. PT STATES "THAT'S NOT REAL FOOD. THIS ISN'T A REAL HOSPITAL. THERE ARE NO DOCTORS OR NURSES". ADVISED PT THIS RN WAS A NURSE. PT STATES "NO. YOU'RE NOT. WHY ARE WE EATING ALL THIS FOOD?". UNABLE TO REDIRECT OR CALM. NOTIFIED VIA PHONE WITH NEW ORDERS RECIEVED FOR PRN THORAZINE 25MG PO/IM Q4H PRN.
--- NOTE | 2020-04-25 18:31 | NUR ---
Pt behaviors continue requiring this RN to remain at pt's side at all times offering continual intervention. Pt very anxious, restless, unredirectable. Pt given PRN Thorazine 25mg PO for increased anxiety/agitation and Apresoline 10mg PO x1 dose per for elevated BP. Will monitor for effect.
[2020-04-25 19:45] VITALS: BP 170/68
--- NOTE | 2020-04-25 20:04 | NUR ---
HAVE CLIENT SITTING IN FRONT OF NURSES DESK. APPEARS DECREASED ANXIETY LONG SHE CAN SEE STAFF AT ALL TIMES. WILL CONTINUE EMOTIONAL SUPPORT.
--- NOTE | 2020-04-25 20:30 | NUR ---
TOILETED FOR URINE OUTPUT ONLY. ASKED TO GO TO BED BUT BECAME EXTREMELY AGGITATED AND UPSET WHEN PLACED IN BED. BROUGHT BACK TO NURSES STATION.
--- NOTE | 2020-04-25 22:00 | NUR ---
ASSITED TO BED AT CLIENTS REQUEST. GLASSES ON BEDSIDE. POSITION OF COMFORT. WILL MONITOR.
--- NOTE | 2020-04-26 00:11 | NUR ---
24 HR chart check completed.
--- NOTE | 2020-04-26 05:03 | NUR ---
HAD LARGE FORMED DARK COLORED STOOL. CLEANED UP AND ASSISTED BACK TO BED. REMAINS CONFUSED.
--- NOTE | 2020-04-26 06:16 | NUR ---
SLEPT 6 HOURS
[2020-04-26 06:49] LABS: BASO # 0.1 10*3/uL (0.0-0.1); BASO % 0.8 % (0.0-1.0); EOS # 0.1 10*3/uL (0.0-0.4); EOS % 0.7 % (1.0-4.0); HEMATOCRIT 29.1 % (37.0-47.0); LYMPH # 1.2 10*3/uL (1.3-4.4); LYMPH % 16.3 % (27.0-41.0); MEAN CORPUSCULAR HGB 20.9 pg (27.0-31.0); MEAN CORPUSCULAR HGB CONC 27.8 g/dl (33.0-37.0); MEAN PLATELET VOLUME 10.1 fl (9.6-12.3); MONO # 0.6 10*3/uL (0.1-1.0); MONO % 8.6 % (3.0-9.0); NEUT # 5.4 10*3/uL (2.3-7.9); NEUT % 73.3 % (47.0-73.0); PLATELET COUNT AUTOMATED 415 10*3/uL (130-400); RED BLOOD COUNT 3.88 10*6/uL (4.10-5.10); RED CELL DISTRI WIDTH 19.2 % (0-14.5); WHITE BLOOD COUNT 7.3 10*3/uL (4.8-10.8)
--- NOTE | 2020-04-26 06:55 | NUR ---
PHYSICAL THERAPY Per conversation with U Nurse, therapist informed that patient had just fallen asleep after multiple episodes of increased Agitation throughout the night. Nurse requested to hold therapy this am to allow patient to sleep and will continue per POC at a later time as able. Bill Powell, HOOP FLARING MACHINE OPERATOR HELPER
[2020-04-26 07:14] LABS: BUN 18 mg/dl (7-24); CHLORIDE 110 mmol/L (98-107); POTASSIUM 4.1 mmol/L (3.5-5.1); SODIUM 142 mmol/L (136-145)
[2020-04-26 07:38] VITALS: BP 138/70
--- NOTE | 2020-04-26 09:00 | NUR ---
ARASELI VALENZUELA ON UNIT TO ASSESS PATIENT. UPDATE PROVIDED. NEW ORDERS IN PLACE.
--- NOTE | 2020-04-26 09:54 | NUR ---
CHRISS BURCIAGA UPDATED WITH EKG RESULT. REVIEWED AM MEDICATIONS, STATES TO HOLD TOPROL XL D/T BRADYCARDIA.
--- NOTE | 2020-04-26 10:46 | NUR ---
HELD KLONOPIN AND BETA ALIZE DUE TO LOW HEART RATE AND BEING EXTREMELY TIRED. PATIENT IS EASY TO AROUSE. Q 15 MINUTE SAFETY CHECKS MAINTAINED AND CONTINUED.
--- NOTE | 2020-04-26 12:00 | NUR ---
SPEECH THERAPY ON UNIT TO ASSESS PATIENT DURING LUNCH, UPDATE PROVIDED.
--- NOTE | 2020-04-26 13:47 | NUR ---
SPEECH THERAPY Patient referred for bedside swallowing evaluation due to patient coughing with liquids. Patient has PMHx s/f dementia, CVA, CAD, HTN, and anxiety. Nursing staff reported she has displayed poor intake and nurse has recently noticed patient coughing on liquids. She is currently on a regular diet. Patient was assessed at lunchtime meal. Upon arrival, patient was reclined in her chair in the quiet room. Nursing staff assisted in re-positioning patient to upright at 90 degrees. Patient was pleasant and cooperative throughout session, with significant confusion displayed. She frequently asked what she was doing here, "what's vallejo" with her, and reported persistently that she was cold with blankets provided. Patient followed simple single-step verbal commands to [facility] which revealed mild impairments in labial, lingual, and buccal strength, ROM, and coordination. She elicited a functional volitional swallow but did not produce volitional cough. Patient's meal tray consisted of grilled cheese, pudding, tangerine slices, and coffee. Patient consumed approximately half of her grilled cheese sandwich, which she consumed without difficulty, although she demonstrated an increase in masticiation time. She did not wish to consume additional food items. Patient consumed sips of coffee by cup. She independently took small, single sips of her coffee, with no over s/s of penetration/aspiration observed across each trial. Patient did not wish to consume any additional drink items, and wanted to only consume her warm coffee. Patient overall demonstrated safety and tolerance of current diet. Recommend she remain on present diet, with recommendation made for selection of softer food items. Recommend universal safe swallowing strategies including sitting upright during all PO intake, taking small bites and sips, and alternating between solids and liquids. Speech therapy will provide follow up treatment at 1-2 additional meals to ensure patient demonstrates carryover of swallow strategies including small sips with additional liquids other than warm coffee which often tends to be consumed in smaller, single sips. Result and recommendations shared with patient's nurse who verbalized understanding. Thank you for your consultation. Barbi Rg MA CCC-LEAD ASSISTANT MANAGER
--- NOTE | 2020-04-26 14:26 | NUR ---
24 G IV TO LEFT FOREARM BY RN FROM SURGERY. CATHETER IS INTACT AND PATENT. WILL CONTINUE TO MONITOR.
--- NOTE | 2020-04-26 14:32 | NUR ---
PATIENT PULLED HER IV OUT. CATHETER WAS INTACT. WILL CONTINUE TO MONITOR.
--- NOTE | 2020-04-26 14:32 | NUR ---
Referrals faxed to [facility] and [facility] at family request.
--- NOTE | 2020-04-26 14:35 | NUR ---
RN left pt to retrieve IV fluids from med room, upon RN's immediate return to the pt, pt had pulled out her IV. Pt states "I didn't do it. I don't know who did that". Catheter tip intact. Pt refusing IV reinsertion, states "No. Don't do that again". Pt alert, active, attempting to climb out of chair and walk unassisted despite frequent redirection. Staff remains at pt's side for safety. Erika BURCIAGA updated, came to unit and assessed, states to d/c IV fluids.
--- NOTE | 2020-04-26 16:51 | NUR ---
P: PATIENT IS ANXIOUS, CONFUSED, INTRUSIVE/DISRUPTIVE, RESTLESS AND YELLING OUT. I: 1:1 FOR EMOTIONAL SUPPORT. SPACE PROVIDED NEEDED. ALLOW PATIENT TO VERBALIZE FEELINGS. REDIRECT/REORIENT NEEDED. ENCOURAGE MEDICATION COMPLIANCE. R: INEFFECTIVE. PATIENT REMAINS CONFUSED. PATIENT IS ALERT AND ORIENTED TO SELF ONLY. PATIENT IS UNABLE TO BE REDIRECTED/REORIENTED. PATIENT IS VERY ANXIOUS. SHE IS PREOCCUPIED WITH . PATIENT IS ASKING QUESTIONS LIKE "HOW DO I EAT FOOD WHEN I KNOW MY PARENTS ARE " "HOW AM I GOING TO EAT THEN GO HOME BY MYSELF AND ?" "I HAVE TO KNOW HOW TO ." PATIENT IS VERY WORRIED AND ONE MINUTE THINKS HER PARENTS ARE ALIVE AND THE NEXT MINUTE SHE IS IN REALITY AND KNOWS THEY HAVE PASSED. SHE IS FEELING SAD OVER THIS. PATIENT DENIES ANY SI/HI. PATIENT DENIES ANY HALLUCINATIONS OR DELUSIONS AND DOES NOT APPEAR TO BE RESPDONDING TO ANY INTERNAL STIMULI. PATIENT IS A 1 ASSIST WITH ACTIVITES OF DAILY LIVING AND FOR TRANSFERS. PATIENT USES [employer]. SET UP FOR MEALS. INTAKES ARE FAIR WITH ADEQUATE FLUIDS. PATIENT IS MEDICATION COMPLIANT WITH EDUCATION. PATIENT IS CONTINENT OF BLADDER. P: Q15 MINUTE SAFETY CHECKS MAINTAINED. WILL CONTINUE TO ENCOURAGE MEDICATION COMPLIANCE. WILL CONTINUE TO ENCOURAGE FOODS/FLUIDS.
[2020-04-26 19:40] VITALS: BP 137/62
--- NOTE | 2020-04-26 23:06 | NUR ---
P-CONFUSION. DISRUPTIVE OF UNIT. PT YELLING OUT FOR LIZETTE AND ATTEMPTING TO HIT ON FURNITURE. I-REORIENT AND PRESENT REALITY. PROVIDE 1:1 WITH THERAPEUTIC INTERVENTIONS. ENCOURAGE MEDICATION COMPLIANCE AND EDUCATE. PROVIDE ADL CARE. MONITOR SLEEP. R-PATIENT ALERT TO SELF, CONFUSED. PT RESTLESS THIS HS, CONTINUES TO YELL OUT FOR LIZETTE DESPITE MULTIPLE REORIENTATION ATTEMPTS. PATIENT ALSO REQUIRES FREQUENT REDIRECTON TO NOT HIT ON FURNITURE, GRAB AT STAFF AND PEERS, AND TO NOT AMBULATE WITHOUT ASSISTANCE DUE TO UNSTEADY GAIT. PT BROUGHT NEAR NURSES STATION IN DAKSHA CHAIR DUE TO LACK OF SAFETY AWARENESS. PATIENT MEDICATION COMPLIANT WHEN PLACED IN APPLESAUCE, UNABLE TO EDUCATE DUE TO COGNITION. PT ASSIST X1 WITH HOC, ALL NEEDS ANTICIPATED BY STAFF. INCONTINENT/CONTINENT OF BOWEL AND BLADDER. PT CURRENTLY LAYING DOWN IN BED, EYES CLOSED, RESPIRATIONS EASY AND REGULAR, NO DISTRESS NOTED. P-CONTINUE TO MONITOR MOOD AND BEHAVIORS, MAINTAIN Q 15 MIN CHECKS AND PRN FOR SAFETY.
--- NOTE | 2020-04-26 23:50 | NUR ---
PATIENT AWAKE, TOILETED PER REQUEST WITH X1 STAFF AND THEN ASSISTED BACK IN BED. PT THEN STARTED TO YELL OUT FOR LIZETTE, STATING "I NEED TO GO GET LIZETTE, HE HAS TO GO TO WORK" AND "I NEED TO GO GET THE CHILDREN". PT ATTEMPTING TO GET OUT OF BED TO AMBULATE WITHOUT ASSISTANCE, GAIT UNSTEADY. PT UNRECEPTIVE TO REDIRECTION OR REORIENTATION. PT BROUGHT UP BY NURSES STATION IN A DAKSHA CHAIR AT THIS TIME DUE TO LACK OF SAFETY AWARENESS. WILL CONTINUE TO MONITOR FOR ESCALATING BEHAVIORS.
[2020-04-27 07:47] VITALS: BP 156/61
--- NOTE | 2020-04-27 09:14 | NUR ---
Patient resting quietly with no c/o discomfort. Respirations easy and regular. Vital signs stable. No overt distress. PETTY MARTE
--- NOTE | 2020-04-27 10:15 | NUR ---
on unit to see pt at this time.
[2020-04-27 12:00] LABS: BILIRUBIN Negative (Negative); BLOOD Negative (Negative); COLOR Yellow (Yellow); GLUCOSE Negative (Negative); KETONE Negative (Negative); LEUKO ESTERASE Trace (Negative); NITRITE Negative (Negative); PH 5.5 (4.5-8.0); SPECIFIC GRAVITY 1.015 (1.001-1.030)
[2020-04-27 12:14] LABS: CLARITY Clear (Clear)
[2020-04-27 12:16] LABS: EPITHELIAL CELLS 0-2; MUCOUS TRACE; RBC 0-2 rbc/hpf (0-2)
--- NOTE | 2020-04-27 12:27 | NUR ---
The patient continues to yell out, incontinence care provided by staff at this time. pt calm and cooperative during care. PETTY MARTE
--- NOTE | 2020-04-27 14:19 | NUR ---
P- SIGNIFICANT CONFUSION AND MEMORY GAPS. RESTLESS, ANXIOUS, INTRUSIVE AND DISRUPTIVE. FREQUENT YELLING OUT. UNABLE TO REDIRECT. BECOMES AGITATED AND BANGS ON VANN AND FURNITURE AT TIMES. POOR SAFETY AWARENESS. DEPRESSED MOOD. I- ORIENTATION, MOOD AND BEHAVIORS ASSESSED. MEDICATIONS ADMINISTERED PER PHYSICIAN'S ORDERS. ASSISTANCE WITH ADL CARE PROVIDED. NUMEROUS DIFFERENT STRATEGIES ATTEMPTED TO EASE PT'S ANXIETY AND RESTLESSNESS. FREQUENT ONE ON ONE ATTENTION FROM STAFF NEEDED TO ENSURE SAFETY. R- PT IS ALERT AND ORIENTED TO SELF ONLY, OTHERWISE PT IS SIGNIFICANTLY CONFUSED WITH VERY POOR MEMORY RECALL. PT ASKS THE SAME QUESTIONS REPEATEDLY AND FIXATES ON VARIOUS TOPICS. UNREDIRECTABLE PT DOES NOT ACCEPT REALITY PRESENTATION. PT BELIEVES SHE IS A MUCH YOUNGER AGE, BELIEVES SHE NEEDS TO GET DRESSED FOR SCHOOL AND FIXATED FOR A FEW HOURS ON GETTING A KISS FROM HER MOM FOR HER BIRTHDAY. PT IS ANXIOUS AND RESTLESS, REPEATEDLY STATES "WONT YOU JUST TAKE ME HOME? GET ME OUT OF HERE? I DON'T BELONG HERE. WHY ARE YOU HOLDING ME HERE?" MULTIPLE AND FREQUENT ATTEMPTS TO REORIENT PT ARE FUTILE. PT STATES "NO. THIS ISN'T A HOSPITAL AND I'M NOT SICK. YOU AREN'T A NURSE. I DON'T NEED TO BE HERE. YOU'RE DOING SOMETHING WRONG". PT CALMS SLIGHTLY WITH STAFF AT HER SIDE, WHEN STAFF MUST STEP AWAY TO ASSIST OTHER PTS THIS PT BECOMES EXTREMELY ANXIOUS, YELLS OUT CONTINUALLY AND ATTEMPTS TO GET UP AND AMBULATE UNASSISTED DESPITE UNSTEADY GAIT. FREQUENT EDUCATION PROVIDED RE: SAFETY PRECAUTIONS TO PREVENT FALLS. PT INTRUSIVE AND DISRUPTIVE D/T YELLING OUT AND ATTEMPTS TO GRAB ONTO PT'S WHO WALK PAST HER SHE STATES "CAN YOU HELP ME GET OUT OF HERE?" PT DOES BECOME SLIGHTLY AGITATED AT TIMES UPON REDIRECTION, BANGING HER HANDS/FISTS OFF THE CHAIR AND VANN. DISCOURAGED PT FROM THIS BEHAVIOR D/T RISK OF HURTING HERSELF. PT STATES "I DON'T CARE". PT DOES ADMIT TO FEELING DEPRESSED, AFFECT IS FLAT. PT DENIES SI/HI, INTENT OR PLAN. PT DENIES HALLUCINATIONS. NO RESPONSE TO INTERNAL STIMULI NOTED. NO DISTRESS NOTED. P- PLAN TO CONTINUE CURRENT TREATMENT.
--- NOTE | 2020-04-27 17:23 | NUR ---
PT DECLINED DINNER, STATES "I DON'T FEEL GOOD. I CAN'T EAT". AT FIRST PT PROVIDES VAGUE COMPLAINTS. THIS RN ATTEMPTS TO ASSESS PT TO DETERMINE WHY SHE ISN'T FEELING WELL. PT THEN STATES "IT'S MY STOMACH. IT HURTS". ASKED PT TO POINT TO THE LOCATION OF THE PAIN, PT POINTS ALL OVER ABDOMINAL AREA. PT STATES "IT FEELS TIGHT LIKE". ABDOMEN NOTED TO BE DISTENDED AT THIS TIME, +BSX4. ABDOMINAL TENDERNESS NOTED. CALL PLACED TO , UPDATED, RECIEVED ORDER FOR STAT ABDOMINAL KUB. ORDER READ BACK AND VERIFIED.
--- NOTE | 2020-04-27 18:33 | NUR ---
notified with KUB result. States she will discuss with and enter any new orders if needed. Pt now stating repeatedly, "Ma'am, it's feeling better. I know it's feeling better. It's getting better. I'm gonna get up". RN remains near pt's side to ensure safety.
--- NOTE | 2020-04-27 19:40 | NUR ---
ON UNIT AT THIS TIME TO ASSESS PATIENT, UPDATE PROVIDED. STATED TO HOLD ALL HS MEDICATIONS AT THIS TIME AND MAKE PATIENT NPO. ALSO STATED THAT IF NEEDED TO UTILIZE PRN IM ATIVAN 1MG IF PATIENT HAS INCREASED AGITATION OR ANXIETY, IF PRN ATIVAN DOES NOT WORK TO GIVE IM GEODON ORDERED. NO OTHER ORDERS RECEIVED AT THIS TIME, WITNESSED BY 2ND RN AND MARKET RESEARCH COORDINATOR.
--- NOTE | 2020-04-27 19:47 | NUR ---
PATIENT OFF UNIT TO CT AT THIS TIME WITH THIS RN AND SECURITY X1.
--- NOTE | 2020-04-27 19:58 | NUR ---
PATIENT BACK FROM CT AT THIS TIME.
[2020-04-27 20:00] VITALS: BP 142/70
[2020-04-27 21:00] LABS: BASO # 0.1 10*3/uL (0.0-0.1); BASO % 0.8 % (0.0-1.0); EOS # 0.1 10*3/uL (0.0-0.4); EOS % 0.8 % (1.0-4.0); HEMATOCRIT 27.1 % (37.0-47.0); LYMPH # 1.2 10*3/uL (1.3-4.4); LYMPH % 13.1 % (27.0-41.0); MEAN CELL VOLUME 75.1 fl (81.0-99.0); MEAN CORPUSCULAR HGB 21.3 pg (27.0-31.0); MEAN CORPUSCULAR HGB CONC 28.4 g/dl (33.0-37.0); MEAN PLATELET VOLUME 10.4 fl (9.6-12.3); MONO # 0.8 10*3/uL (0.1-1.0); MONO % 8.4 % (3.0-9.0); NEUT # 7.2 10*3/uL (2.3-7.9); NEUT % 76.7 % (47.0-73.0); PLATELET COUNT AUTOMATED 433 10*3/uL (130-400); RED BLOOD COUNT 3.61 10*6/uL (4.10-5.10); RED CELL DISTRI WIDTH 19.4 % (0-14.5); WHITE BLOOD COUNT 9.3 10*3/uL (4.8-10.8)
[2020-04-27 21:12] LABS: ALBUMIN 3.1 gm/dl (3.1-4.5); ALKALINE PHOSPHATASE 84 U/L (45-117); BUN 16 mg/dl (7-24); CHLORIDE 112 mmol/L (98-107); CREATININE 0.66 mg/dL (0.55-1.02); LIPASE 128 U/L (73-393); POTASSIUM 3.9 mmol/L (3.5-5.1); SGOT/AST 14 IU/L (3-35); SGPT/ALT 12 U/L (12-78); SODIUM 143 mmol/L (136-145); TOTAL PROTEIN 6.1 gm/dL (6.4-8.2)
--- NOTE | 2020-04-27 21:32 | NUR ---
CALLED UNIT, STATED SHE REVIEWED THE LABS AND THE CT, THAT IT IS OKAY TO GIVE PATIENT HS MEDICATIONS AND THAT SHE WILL ALSO BE PUTTING IN A NEW ORDER FOR MIRALAX AND A STOOL SOFTENER. PT ALSO NO LONGER NPO AT THIS TIME. THEN STATED TO PASS ON TO AM SHIFT TO SEE IF ITS POSSIBLE TO GET A PREVIOUS CT RESULT FOR COMPARISON. NO OTHER ORDERS RECEIVED.
--- NOTE | 2020-04-27 22:54 | NUR ---
P-CONFUSION. ANXIOUS. DISRUPTIVE OF UNIT. I-REORIENT AND PRESENT REALITY. PROVIDE 1:1 WITH THERAPEUTIC INTERVENTIONS. ENCOURAGE MEDICATION COMPLIANCE AND EDUCATE. PROVIDE ADL CARE. MONITOR SLEEP. R-PATIENT ALERT TO SELF, CONFUSED. PT RESTLESS THIS HS, CONTINUES TO YELL OUT FOR LIZETTE OR "HELP ME" DESPITE MULTIPLE REORIENTATION ATTEMPTS AND ALL NEEDS BEING MET. PATIENT ALSO REQUIRES FREQUENT REDIRECTION TO NOT HIT ON FURNITURE, GRAB AT STAFF AND PEERS, AND TO NOT AMBULATE WITHOUT ASSISTANCE DUE TO UNSTEADY GAIT. PT BROUGHT NEAR NURSES STATION IN DAKSHA CHAIR DUE TO LACK OF SAFETY AWARENESS. PT ASSIST X1-2 WITH HOC, ALL NEEDS ANTICIPATED BY STAFF, INCONTINENT/CONTINENT OF BOWEL AND BLADDER. NO PHYSICAL COMPLAINTS VOICED. PT CURRENTLY LAYING BACK IN THE DAKSHA CHAIR WITH EYES CLOSED, RESPIRATIONS EASY AND REGULAR, NO DISTRESS NOTED. P-CONTINUE TO MONITOR MOOD AND BEHAVIORS. MAINTAIN Q 15 MIN CHECKS AND PRN FOR SAFETY.
--- NOTE | 2020-04-27 23:49 | NUR ---
SMALL SKIN TEAR NOTED ON RIGHT OUTTER FOREARM, MEASUREMENTS NOTED IN WOUND SCREEN. EDGES APPROXIMATED. TUBE WRAPPER NOTIFIED AT 2340. CALIXTO ASIF UPDATED AT 2345. UPDATED AND NOTIFIED OF NEEDING WOUND ORDERS AT 2348. STATED SHE WILL PUT IN ORDERS AT THIS TIME. CLEAN DRY DRESSING APPLIED.
--- NOTE | 2020-04-28 06:00 | NUR ---
24 hour chart check completed.
--- NOTE | 2020-04-28 07:17 | NUR ---
SLEPT APPROX 6 HOURS UNINTERRUPTED THIS SHIFT.
[2020-04-28 08:00] VITALS: BP 198/76
--- NOTE | 2020-04-28 08:06 | NUR ---
NOTIFIED OF MANUAL BP OF 198/76 PULSE 80 WITH AM VITALS. PER DR. QUIÑONES GIVE AM MEDS ORDERED AND SHE WILL ORDER STAT EKG. NO SIGNS OF DISTRESS NOTED.
--- NOTE | 2020-04-28 08:42 | NUR ---
NOTIFIED DR. QUIÑONES THAT EKG RESULTS ARE AVAILABLE PULSE [address] QUIÑONES HOLD METOPROLOL AND SHE WILL REVIEW THE EKG.
--- NOTE | 2020-04-28 10:12 | NUR ---
UPDATED DR. QUIÑONES ON MANUAL BP RECHECK OF 202/[address] QUIÑONES SHE WILL REVIEW AND PUT IN ORDERS.
--- NOTE | 2020-04-28 10:20 | NUR ---
ON UNIT TO SEE PT AT THIS TIME, UPDATED WITH BP 202/80, HR 60. PT NOW PRESENTING WITH MOIST COUGH DR. SIMMONS. NEW ORDERS RECIEVED FOR STAT PORTABLE CXRAY AND CLONODINE 0.1MG PO X1. STATES TO REASSESS BP IN ONE HOUR. DISCUSSED WITH THAT BOILER ENGINEER RN TALKED WITH DAUGHTER ABOUT MASS IN [place]. DAUGHTER REPORTED TO RN THAT THEY WERE UNAWARE OF THIS.
--- NOTE | 2020-04-28 10:40 | NUR ---
RECEIVED CALL FROM DR BAIRD. PER DR BAIRD THE CHEST XRAY LOOKS GOOD, CONTINUE TO MONITOR PT FOR S/S OF ASPIRATIONS. PT IN VIEW OF NURSES STATION, RESTING COMFORTABLY.
[2020-04-28 11:01] LABS: BASO # 0.1 10*3/uL (0.0-0.1); BASO % 0.7 % (0.0-1.0); EOS # 0.1 10*3/uL (0.0-0.4); EOS % 0.8 % (1.0-4.0); HEMATOCRIT 32.3 % (37.0-47.0); LYMPH # 0.9 10*3/uL (1.3-4.4); LYMPH % 11.8 % (27.0-41.0); MEAN CELL VOLUME 76.9 fl (81.0-99.0); MEAN CORPUSCULAR HGB 21.2 pg (27.0-31.0); MEAN CORPUSCULAR HGB CONC 27.6 g/dl (33.0-37.0); MEAN PLATELET VOLUME 10.2 fl (9.6-12.3); MONO # 0.6 10*3/uL (0.1-1.0); MONO % 8.1 % (3.0-9.0); NEUT # 5.9 10*3/uL (2.3-7.9); NEUT % 78.3 % (47.0-73.0); PLATELET COUNT AUTOMATED 464 10*3/uL (130-400); RED CELL DISTRI WIDTH 19.5 % (0-14.5); WHITE BLOOD COUNT 7.5 10*3/uL (4.8-10.8)
[2020-04-28 11:13] LABS: BUN 15 mg/dl (7-24); CHLORIDE 111 mmol/L (98-107); CREATININE 0.68 mg/dL (0.55-1.02); POTASSIUM 4.3 mmol/L (3.5-5.1); SODIUM 142 mmol/L (136-145)
--- NOTE | 2020-04-28 11:28 | NUR ---
NOTIFIED DR. QUIÑONES PTS LAB RESULTS ARE AVAILABLE, DR. QUIÑONES WILL REVIEW.
--- NOTE | 2020-04-28 12:47 | NUR ---
MANUAL BP RECHECKED 144/60, AFTER ONE TIME CLONIDINE 0.1MG PO.
--- NOTE | 2020-04-28 14:33 | NUR ---
NOTIFIED DR. MTZ OF MANUAL BP RECHECK OF 144/60, NO FURTHER ORDERS.
--- NOTE | 2020-04-28 15:58 | NUR ---
P-INTRUSIVE/DISRUPTIVE, RESTLESS, ANXIOUS, YELLING OUT, MEMORY DEFICITS, SAFETY UNAWARENESS. I-ASSESSED MOOD AND BEHAVIORS. ATTEMPTED NUMEROUS DIFFERENT INTERVENTIONS TO EASE ANXIETY. CONSTANT REDIRECTION, REORIENTATION AND 1:1 EMOTIONAL/SAFETY SUPPORT. ADMINISTERED MEDICATIONS PER PHYSICIANS ORDERS. ASSISTED WITH TOTAL ADLS X2 STAFF. R-ALL THERAPUETIC INTERVENTIONS INEFFECTIVE. PT REQUIRED CONSTANT 1:1 OTHER THAN WHEN ASLEEP. MEDICATION COMPLIANT. PT TOILETED CONTINENT OF URINE. P-WILL CONTINUE TO MONITOR MOOD AND BEHAVIORS. WILL CONTINUE TO USE THERAPUETIC INTERVENTIONS. Q 15 MIN CHECKS MAINTAINED AND PRN.
--- NOTE | 2020-04-28 19:41 | NUR ---
P--CONFUSION,ANXIETY I--TRIED 1:1 BUT UNABLE DUE TO INCREASED CONFUSION. R-- I WANT MY MOM AND DAD. CAN I GO TO BED. HELP ME P- WILL MONITOR FOR CHANGES IN MOOD/BEHAVIOR AND Q15 MINS AND PRN FOR SAFETY. CONTINUE EMOTIONAL SUPPORT
[2020-04-28 20:00] VITALS: BP 147/70
--- NOTE | 2020-04-29 02:12 | NUR ---
24 HR chart check completed.
--- NOTE | 2020-04-29 06:39 | NUR ---
UP IN DAKSHA CHAIR. POUNDING ON TRAY CONTINUOUSLY YELLING FOR J[place] AND SAYING I DON'T WANT TO GO TO [facility]. UNABLE TO REORIENT. WOUND CARE IN TO SEE CLIENT. PLACED IN QUIET ROOM IN FRONT OF NURSES DESK FOR CLOSER MONITORING
--- NOTE | 2020-04-29 07:15 | NUR ---
PHYSICAL THERAPY Patient seen this am for therapy visit and was sitting semi reclined in Pratima chair upon therapist arrival. Patient identified by name / and joined by OT prosthetics assistant this morning for observation only. Patient reports no new c/o's and repeatedly voiced she wanted to go home and see her Mother. Patient needed multiple v/c's to focus on task while transfering sit to stand at handrail with MIN A. Patient ambulated RN ALLERGY/CGA, 60'x 1 to bathroom, demonstrating bouts of unsteady gait pattern, decreased stride and required MIN A during all 90/180 turns to avoid risk of falling. Patient returned to her Pratima chair in activity room and remained with semi reclined with body alarm / lap tray under U staff Supervision. Will continue per POC as tolerated, total treatment time 16 minutes. Bill Powell, TREE PRUNER
--- NOTE | 2020-04-29 07:30 | NUR ---
OT NOTE Prior to coming to the floor spoke with nurse and reported that therapy was coming to treat this pt. Nurse gave approval. Pt was seen this A.M. 1:1 for 15 minute OT session with PUBLIC RELATIONS REPRESENTATIVE and nursing staff present for observation only. Upon arrival pt was sitting upright in the jose chair. Pt identified by name and and had no complaints at this time. While seated pt donned B socks with SBA. Sit to stand completed from chair level with Kelly followed by functional mobility to the bathroom with Kelly hand held. pt presented with bouts of unsteady stance that required Kelly to correct. Pt then stood sink side while washing her hands with Kelly due to being unsteady. Functional mobility completed back to the jose chair with Kelly hand held. Throughout entire session pt required constant verbal prompts for attention to task due to constant yelling out of "take me home to my mom." Pt was left sitting upright in the dining mast in the jose chair under [facility] staff supervision with lap tray in place and body alarm activated for safety. COntinue with rec D/C plan to SNF/LTC. YARELI Nava/Sri
[2020-04-29 07:36] VITALS: BP 127/72
--- NOTE | 2020-04-29 08:27 | NUR ---
Patient resting quietly with no c/o discomfort. Respirations easy and regular. Vital signs stable. No overt distress. PETTY MARTE
--- NOTE | 2020-04-29 08:29 | NUR ---
PT IS ANXIOUS, YELLING OUT, CONFUSED. PT 1:1 WITH STUDENT NURSE AT THIS TIME, FREQUENT REDIRECTION AND REORIENTATION PROVIDED. BRIGHT LIGHT THERAPY INITIATED. PT PROVIDED WITH WORD SEARCH ACTIVITY. PT CALMS WITH 1:1, PT IS STATING THAT SHE IS TIRED AND WANTS TO GO HOME. PT IS REFUSING TO COMPLETE WORD SEARCH. REDIRECTION AND REORIENTATION INEFFECTIVE, PT BECOMES ARGUMENTATIVE. WILL CONTINUE TO REDIRECT AND REORIENT APPROPRIATE. WILL CONTINUE TO PROVIDE EMOTIONAL SUPPORT. Q15 MIN MONITORING PER POLICY FOR SAFETY.
--- NOTE | 2020-04-29 09:00 | NUR ---
Treatment Plan meeting was held this a.m. with Dr. Epperson, NEEL Mills, RN, AT, SPRING FORMER-S and Plant Technician/Control Room Operator in attendance. Plan for discharge this week. Pt. is for Placement. Referrals faxed to [facility] facilities on [facility] Will follow with those facilities today.
--- NOTE | 2020-04-29 14:16 | NUR ---
Family meeting this AM with pt's daughter Charly Monroy, Itzel Corcoran LPN category planner, and this SECURITY OPERATIONS MANAGER-S. Discussed pt's current status and discharge needs. Reviewed pt's meds. Explored discharge options further. Charly stated that she was going to futher discuss discharge needs with pt's . Possible discharge plans are [facility] or [facility]. Charly stated that pt's is now more accepting that pt should not return home. Will await return call with [facility] preference.
--- NOTE | 2020-04-29 14:22 | NUR ---
Spoke with Sherice Arboleda for [facility] concerning referrals to [facility] and [facility]. Requesting Additional Clinicals faxed to facilities. Sasha is Reviewing.
--- NOTE | 2020-04-29 14:24 | NUR ---
SPEECH PATHOLOGY Treatment was attempted this pm during lunchtime meal. Patient had already finished lunch and was reportedly back in bed, therefore was unable to be seen for treatment this date. Staff reported that patient has been eating well, with good intakes and no overt difficulty. Treatment will continue tomorrow to ensure safe tolerance of meals. MISA LOPEZ MSCCC-ACUTE CARE CLINICAL NURSE SPECIALIST
--- NOTE | 2020-04-29 15:28 | NUR ---
Further Updates faxed to the [facility].
--- NOTE | 2020-04-29 15:38 | NUR ---
PM GROUP PT WAS PRESENT FOR AFTERNOON GROUP THERAPY BUT IS UNABLE TO PARTICIPATE IN ANY ACTIVITY DUE TO COGNITIVE IMPAIRMENT. PT WAS CONSTANTLY YELLING OUT, MAKING DEMANDS OF GOING TO BED, GOING TO SLEEP, GOING HOME, CALLING FOR HER , REQUESTING ONE THING AND THEN NOT WANTING IT AND SO ON. NURSING STUDENTS WERE HELPFUL IN DISTRACTING PT FOR A FEW MINUTES AT A TIME. PT BEGAN BANGING ON A TABLE WHICH HAD TO BE MOVED AND BANGING ON THE ARM OF HER CHAIR DEMANDING TO GO TO BED.
--- NOTE | 2020-04-29 17:15 | NUR ---
PT HAS BEEN INCREASING ANXIETY. PT IS YELLING OUT, CHILDLIKE IN TONE. PT BANGING ON TABLES, KICKING, SPITTING, THROWING FOOD. PT IS DEMANDING, REPETITIVE, INTRUSIVE. ATTEMPTED TO LAY PT IN BED, PROVIDE HOC, CALM MUSIC, LOW LIGHTING, WARM BLANKETS. REDIRECTION AND REORIENTATION. ALL INTERVENTIONS INEFFECTIVE. DR. LAMB MADE AWARE OF VISTARIL AND THORAZINE THE ONLY TWO PRN MEDICATIONS AVAILABLE. DR. LAMB STATES THAT VISTARIL HAS BEEN INEFFECTIVE IN THE PAST AND PT DID NOT TOLERATE THORAZINE WELL. DR. LAMB STATES TO DISCONTINUE CURRENT VISTARIL AND THORAZINE PRN MEDICATIONS. N.O HALDOL 2.5 MG PO OR IM Q4H. WITNESSED BY SECOND RN. ORDER PLACED IN COMPUTER AND HALDOL 2.5MG ADMINISTERED PO AT THIS TIME. PT COMPLIANT WITHOUT DIFFICULTY. WILL CONTINUE TO MONITOR PT'S MOOD, BEHAVIORS, AND FOR EFFECTIVENESS AND SIDE EFFECTS OF N.O. PT ASKED TO GET BACK UP AT THIS TIME, BROUGHT TO DINING ROOM FOR SUPPER AT THIS TIME. Q15 MIN MONITORING PER POLICY FOR SAFETY.
--- NOTE | 2020-04-29 17:55 | NUR ---
PT CURRENTLY SITTING IN QUIET AREA YELLING OUT, SLAMMING THE DOOR. PRN INEFFECTIVE AT THIS TIME. WILL CONTINUE TO MONITOR.
[2020-04-29 19:15] VITALS: BP 150/82
--- NOTE | 2020-04-29 20:57 | NUR ---
HALDOL 2.5MG IM GIVEN AT 2028PM DUE TO CLIENT SPITTING PILLS OUT, CONTINUOUS YELLING AND POUNDING. SHE APPEARS VERY DISTRAUGHT THAT WE ARE UNABLE TO REDIRECT OR PROVIDE EMOTIIONAL SUPPORT FOR. C/O PAIN IN HAND DUE TO CONTINUOUS POUNDING ON TABLE. INJECTION GIVEN FOR CLIENTS RELIEF BUT AT THIS TIME IT HAS BEEN INEFFECTIVE. CONTINUE TO MONITOR FOR CHANGES IN MOOD/BEHAVIOR AND Q15 MINS FOR SAFETY.
--- NOTE | 2020-04-30 00:17 | NUR ---
24 HR chart check completed.
--- NOTE | 2020-04-30 00:49 | NUR ---
UP IN CHAIR SHE CLIMBED OUT OF BED TWICE. BROUGHT TO QUIET ROOM IN FRONT OF NURSES STATION FOR SAFETY. UNABLE TO REORIENT. WILL CONTINUE TO MONITOR
--- NOTE | 2020-04-30 05:54 | NUR ---
TOILETED AND DRESSED FOR THE DAY. PO FLUIDS PROVIDED.
--- NOTE | 2020-04-30 06:19 | NUR ---
PATIENT SLEPT 3-4 HOURS INTERRUPTED THROUGHOUT SHIFT. Q 15 MINUTE CHECKS MAINTAINED
--- NOTE | 2020-04-30 07:15 | NUR ---
PHYSICAL THERAPY Patient seen this am for therapy visit and sitting up in quiet room Pratima chair upon therapist arrival. Patient identified by name / and joined by OT process assistant for observation only. Patient needed repeated v/c's to focus on task this morning as she voiced multiple times her need to go change her clothes and "please don't leave me". Patient transfers sit to stand CGA and ambulates JUNIOR ACCOUNT EXECUTIVE/CGA 50'x 2 to bathroom, demonstrating slow, cautious gait pattern, including mild LOB in bathroom during 180 degree turn around. Patient returned to her Pratima chair in Quiet room across from Nursing station with lap tray and body alarm, under [facility] staff Supervision. Will continue per POC as tolerated, total treatment time 16 minutes. Bill Powell, UTILIZATION SUPERVISOR
--- NOTE | 2020-04-30 07:25 | NUR ---
OT NOTE Pt was seen this A.m. 1:1 for 15 minute OT session with TYPEWRITER ALIGNER and nursing staff present for observation only. Upon arrival pt was sitting upright in the jose chair in the quiet room. Pt identified by name and and had no complaints at this time. Pt completed sit to stand from chair level with CGA hand held. Functional mobility completed from the quiet room to the bedroom with CGA hand held with bouts of unsteady stance that required Kelly to correct. While sitting EOb pt donned sweatshirt with Kelly. Sit to stand completed from bed level with CGA followed by functional mobility to the bathroom with CGA hand held. She then stood sink side while washing her hands with Kelly due to being unsteady. Pt was left sitting upright in the jose chair in the quiet room with lap trya in place, body alarm activated for safety, and under [facility] staff supervision. Continue with rec D/C plan to SNF/LTC. YARELI Nava/Sri
[2020-04-30 08:00] VITALS: BP 170/68
--- NOTE | 2020-04-30 09:00 | NUR ---
Treatment Plan meeting was held this a.m. with Dr. Epperson via telephone, NEEL Mills RN, AT, DOUBLE END TENON OPERATOR-S and Ham Pumper in attendance. Plan for discharge at the end of the week, Next week.
--- NOTE | 2020-04-30 10:38 | NUR ---
PATIENT TOILETED AT THIS TIME, WAS CONTINENT OF URINE. PATIENT THEN PUT TO BED PER HER REQUEST. Q15 MINUTE SAFETY CHECKS MAINTAINED.
--- NOTE | 2020-04-30 10:46 | NUR ---
Received Call from Sherice Peng at the [facility]. Pt. accepted and is able to discharge to the [facility] on due to financials.
--- NOTE | 2020-04-30 14:38 | NUR ---
SPEECH PATHOLOGY Patient was seen for treatment this pm, during lunchtime meal. Patient was sitting upright in wheelchair in activity room with peers. She was feeding herself. Patient displayed good use of safe swallow precautions, such as slow feeding and small bites and sips. Patient displayed no overt s/s aspiration with any item. She consumed a variety of food and liquids. As she is tolerating diet with no difficulty and using safe swallow precautions, recommend discharge from dysphagia therapy at this time. Thank you for this referral. It has been a pleasure taking part in this patient's care. MISA LOPEZ MSCCC-SOFA INSPECTOR
--- NOTE | 2020-04-30 15:42 | NUR ---
PM GROUP/MOVIE PT IS UNABLE TO ATTEND OR PARTICIPATE IN GROUP THERAPY AT THIS TIME DUE TO COGNITIVE IMPAIRMENT. PT WAS SITTING IN THE SILVA IN FRONT OF THE NURSES STATION AND I SAT WITH HER FOR A WHILE. PT WAS MUCH BETTER THAN YESTERDAY IN ACTUALLY PARTICIPATING IN CONVERSATION. PT IS VERY CONFUSED AND QUESTIONS EVERYTHING. PT WAS UP TO WALK WITH THE WALKER A FEW TIMES. PT STATED THAT SHE WAS VERY SCARED AND NERVOUS BUT EXHIBITED NO SIGNS OF ANXIETY.
--- NOTE | 2020-04-30 16:20 | NUR ---
ARASELI VALENZUELA MADE AWARE OF PATIENT BEING POSITIVE FOR OCCULT BLOOD.
[2020-04-30 19:44] VITALS: BP 162/82
--- NOTE | 2020-04-30 23:09 | NUR ---
P-CONFUSION, ANXIOUS, RESTLESS I-REDIRECTION WITH 1:1 THERAPEUTIC INTERVENTIONS AND PRESENT REALITY. EDUCATE AND ENCOURAGE MEDICATION COMPLIANCE R-PATIENT MEDICATON COMPLIANT AT HS. PATIENT PROVIDED NOURISHMENT AND FLUIDS AT HS. PATIENT STATING "I'M JUST SO NERVOUS AND I DON'T KNOW WHAT TO DO. PATIENT PROVIDED HALDOL 2.5MG PO. MEDICATION WITH SOMEWHAT EFFECTIVE RESULTS AT THIS TIME. PATIENT AT TIMES BANGING ON OBJECTS. PATIENT WITH NO HALLUCINATIONS OR DELUSIONS. PATIENT WITH NO HOMICIDAL OR SUICIDAL IDEATIONS. P-CONTINUE TO ENCOURAGE MEDICATION COMPLIANCE, CONTINUE TO PRESENT REALITY, ENCOURAGE GROUP THERAPY WHILE AWAKE
--- NOTE | 2020-05-01 06:23 | NUR ---
PATIENT SLEPT 7 HOURS OF INTERRUPTED SLEEP THROUGHOUT SHIFT. Q 15 MINUTE CHECKS MAINTAINED. 24 HR chart check completed.
--- NOTE | 2020-05-01 07:20 | NUR ---
PHYSICAL THERAPY Patient seen this am 1:1 for therapy visit and was relaxing supine in bed upon therapist arrival. Patient identified by name / and was joined by OT ex assistant/program director for observation only this session. Patient reports no new c/o's this morning as she transfered supine to sit EOB with MIN A x 1, tolerating several minutes static EOB sit to fully awaken. Patient was pleasant, completing sit to stand transfer, CGA, then ambulating with use of wh walker, CGA, 75'x 1, demonstrating slow daniela, decreased stride and L side gait deviation due to "drifting". Patient able to improve walker navigation following v/c and returned to activity room Pratima chair with body alarm, under U staff Supervision. Will continue per POC as tolerated, total treatment time 15 minutes. Bill Powell, TOLL TICKET CLERK
--- NOTE | 2020-05-01 07:30 | NUR ---
OT NOTE Prior to coming to the floor spoke with nurse and reported that therapy was coming to treat this pt. Nurse gave approval. Pt was seen this A.M. 1:1 for 15 minute OT session with ENGINE LATHE OPERATOR and nursing staff present for observation only. Upon arrival pt was supine in bed. Pt identified by name and and had no complaints at this time. Pt transferred supine to sit EOB with Kelly for assist with upper body. Sit to stand completed from bed level with modA and use of w/w for UE support. Upon inital rise pt presented with retrograde LOB that required Kelly to correct. Challenged pt's static standing tolerance needed for increased I in self care tasks and functional transfers, pt was able to tolerate aprox 4 minutes at a time before sitting due to fatigue. Also challenged pt's dynamic standing balance while weight shifting and reachng over various planes and pt was able to maintain F- standing balance requiring Kelly/UE support. Functional mobility completed to the dining mast with CGA and use of w/w with Kelly for walker navigation. Pt was left sitting upright in the jose chair with body alarm activated and under U staff supervision. Continue with rec D/C plan to SNF/LTC . YARELI Nava/Sri
[2020-05-01 08:00] VITALS: BP 141/62
--- NOTE | 2020-05-01 09:00 | NUR ---
Treatment Plan meeting was held this a.m. with NEEL Mills, RN, AT, VISUAL AND STOCK ASSOCIATE-S and Candy Depositing Machine Operator in attendance. Plan for discharge . Pt. is accepted at the [facility].
--- NOTE | 2020-05-01 09:08 | NUR ---
Notified Sherice Peng of the [facility] of Plans to discharge . Clinical Updates faxed to facility along with copies of PASRR and Level 2 review and Results.
--- NOTE | 2020-05-01 11:40 | NUR ---
AM GROUP PT DID NOT ATTEND MORNING GROUP THERAPY. PT WAS IN BED RESTING.
--- NOTE | 2020-05-01 14:24 | NUR ---
CHRISS STAVE JOINTER ON UNIT TO SEE PT AT THIS TIME. AWARE OF +OCCULT STOOL SAMPLE YESTERDAY. AWARE PT SCHEDULED FOR DISCHARGE TOMORROW.
--- NOTE | 2020-05-01 15:08 | NUR ---
PATIENT IS ALERT TO PERSON WITH CONFUSION. LONG/SHORT TERM MEMORY DEFICITS. MOOD IS DEPRESSION. DENIES ANY HALLUCINATIONS, DELSUIONS, HI/SI OR PAIN. NO RESPONSE TO INTERNAL STIMLULI. MEDICATION COMPLIANT. Q 15 MINUTE SAFETY CHECKS MAINTAINED. 1-2 PERSON ASSIST WITH ACTIVITIES OF DAILY LIVING, CONTINENT OF BOWEL AND BLADDER. SET UP FOR MEAL, INTAKES VARY WITH MUCH ENCOURAGEMENT. INTERACTIVE WITH NURSE, PARTICIPATING IN GROUP SESSION. UP IN DAKSHA CHAIR FOR COMFORT. CONTINUE TO MONITOR FOR INCREASED CONFUSION, REPEATIVE STATEMENTS/ CONCERN, ANXIETY AND BEING INTRUSIVE. PROVIDE ONE ON ONE AND REIDRECTION NEEDED.
--- NOTE | 2020-05-01 15:47 | NUR ---
PM GROUP PT ATTENDED AFTERNOON GROUP THERAPY AND PARTICIPATED BY SOCIALIZING AND PUTTING A PUZZLE TOGETHER. PT IS VERY CONFUSED BUT WAS CALM AND EXHIBITED NO ANXIETY OR AGITATION WHILE IN GROUP.
--- NOTE | 2020-05-01 16:43 | NUR ---
Shift chart check completed.
--- NOTE | 2020-05-01 17:04 | NUR ---
Pt reporting increased feelings of nervousness. MHW sitting with pt and has attempted various redirection and distraction techniques for past 20 minutes without success. Pt stated "Can't you give me something to help me?" PRN Haldol 2.5mg PO given at 1704 for increased anxiety. Will monitor for effect.
--- NOTE | 2020-05-01 18:00 | NUR ---
Haldol effective, pt calm at this time. Interacting appropriately with MHW and peers.
[2020-05-01 19:29] VITALS: BP 138/64
--- NOTE | 2020-05-01 22:07 | NUR ---
P-CONFUSION, RESTLESS I-REDIRECTION WITH 1:1 THERAPEUTIC INTERVENTIONS AND PRESENT REALITY. EDUCATE AND ENCOURAGE MEDICATION COMPLIANCE R-PATIENT MEDICATON COMPLIANT AT HS. PATIENT REFUSED NOURISHMENT BUT PROVIDED FLUIDS AT HS. PATIENT TOILETED THIS SHIFT. PATIENT FREQUENTLY ASKING "WHERE AM I? AND WHY AM I HERE?" THOUGHOUT SHIFT. PATIENT WITH NO HALLUCINATIONS OR DELUSIONS. PATIENT WITH NO HOMICIDAL OR SUICIDAL IDEATIONS. P-CONTINUE TO ENCOURAGE MEDICATION COMPLIANCE, CONTINUE TO PRESENT REALITY, ENCOURAGE GROUP THERAPY WHILE AWAKE
--- NOTE | 2020-05-02 05:45 | NUR ---
PATIENT SLEPT 8 HOURS OF INTERRUPTED SLEEP THROUGHOUT SHIFT. Q 15 MINUTE CHECKS MAINTAINED. 24 HR chart check completed.
--- NOTE | 2020-05-02 07:25 | NUR ---
PHYSICAL THERAPY Patient seen this am for therapy visit and was sitting up in Pratima chair by nursing station upon therapsit arrival. Patient identified by name / and joined by OT bilingual executive assistant for observation only this session. Patient was pleasant, voicing no new c/o's and transfers sit to stand CGA x 1. Patient ambulates SENIOR APPLICATION SOFTWARE ENGINEER/CGA, 75'x 1, demonstrating slow, steady daniela and c/o of mild R knee pain > 50 feet. Patient also upon return to Pratima chair, reported mild c/o dizziness which seemed to improve once she sat down in chair. Patient demonstrated several bouts of unsteady gait pattern and remained in activity room Pratima chair with body alarm, under [facility] staff Supervision. Will continue per POC as tolerated, total treatment time 15 minutes. Bill Powell, BAR TENDER
--- NOTE | 2020-05-02 07:30 | NUR ---
OT NOTE Prior to coming to the floor spoke with nurse and reported that therapy was coming to treat this pt. Nurse gave approval. Pt was seen this A.M. 1:1 for 15 minute OT session with INSPECTOR FIREARMS and nursing staff present for observation only. Upon arrival pt was found up in room unsteady with bed alarm sounding after climbing over bed rail. Pt identified by name and and had no complaints at this time. Functional mobility completed to the bathroom with Kelly hand held due to bouts of unsteady stance. Pt transferred on/off standard commode with Kelly. Clothing management completed with Kelly and toilet hygiene completed with Kelly. Functional mobility completed to the jose chair with Kelly hand held. Pt was left sitting upright in the jose chair with body alarm activated for safety and under U staff supervision. COntinue with rec D/C plan to SNF/LTC. YARELI Nava/Sri
[2020-05-02 07:48] VITALS: BP 147/73
--- NOTE | 2020-05-02 08:15 | NUR ---
NOTIFIED ARASELI VALENZUELA NP OF BP AND MANUAL PULSE OF 56. PER ARASELI VALENZUELA NP OK TO GIVE NORVASC AND HYDRALAZINE. HOLD METOPROLOL.
--- NOTE | 2020-05-02 09:00 | NUR ---
Treatment Plan meeting was held this a.m. with Dr. Epperson, RN, AT and Belt Glass Sander. Plan for discharge today. Pt. is accepted at the [facility]. Transportation arranged with [facility] to Transport with video tape duplicator time 11:00 a.m. Spoke with Pt. daughter Charly this a.m. and advised her of Discharge plans.
[2020-05-02] MEDS ORDERED: MEMANTINE HCL10 MG PO (10:01)
[2020-05-02] MEDS ORDERED: DULOXETINE HCL60 MG PO (10:01)
[2020-05-02] MEDS ORDERED: Vitamin D (1,000 UNI PO (10:01)
[2020-05-02] MEDS ORDERED: OLANZAPINE5 MG PO ×2 (10:01)
[2020-05-02] MEDS ORDERED: RIVASTIGMINE1 EAC2 T (10:01)
--- NOTE | 2020-05-02 10:23 | NUR ---
ARASELI VALENZUELA FABRICATION MANAGER ON UNIT TO ASSESS PT, UDPATE PROVIDED.
--- NOTE | 2020-05-02 10:26 | NUR ---
NURSE TO NURSE GIVEN TO HAVEN CHAVES, AT [facility]. PT ALERT TO PERSON, WITH CONFUSION NOTED. PT ASSISTED WITH ADLS X2 ASSIST. PT CALM, AND COOPERATIVE WITH HOC, SHOWER GIVEN THIS AM. NO AH/VH, SI/HI, DELUSIONS OR HALLUCINATIONS NOTED. PT CONTINENT OF BOWEL AND BLADDER WITH EPISODES OF INCONTINENCE. PT [id number] WITH 1-2 ASSIST. PT HAS SKIN TEAR TO RIGHT FOREARM, COVERED WITH OPTIFOAM, NO OTHER SKIN ISSUES. PT RESTING IN CHAIR AT THIS TIME PARTICIPATING IN ACTIVTIES.
--- NOTE | 2020-05-02 10:46 | NUR ---
Discharge Paperwork faxed to [facility].
--- NOTE | 2020-05-02 11:37 | NUR ---
AM GROUP PT WAS PRESENT FOR MORNING GROUP THERAPY RECLINED IN A DAKSHA CHAIR NAPPING. PT IS SET TO BE DISCHARGED FROM THE UNIT TODAY.
--- NOTE | 2020-05-02 11:50 | NUR ---
PT DISCHARGED TO [facility]. ALL BELONGINGS AND DISCHARGE PAPERWORK SENT WITH PT.
--- NOTE | 2020-05-02 16:15 | NUR ---
OCCUPATIONAL THERAPY CO-SIGN I approve of the Occupational Therapy notes written above. KOLTON GOFF OTR/Sri
--- NOTE | 2020-05-03 07:51 | NUR ---
PHYSICAL THERAPY CO-SIGN I approve of the Physical Therapy notes written above. Mary Ellen Lundberg PT
== END 2020-05-02 11:50 | disposition other institution (70) | DRG 885 ==
LOC: ED 10:20 → 3N 12:38
PROVIDERS: Counselor Professional; Emergency Medicine; Student in an Organized Health Care Education/Training Program; ADMIT Psychiatry & Neurology Psychiatry; ATTEND Psychiatry & Neurology Psychiatry
DX: F33.3 Major depressive disorder, recurrent, severe with psychotic symptoms (principal); F01.51 Vascular dementia, unspecified severity, with behavioral disturbance; F23 Brief psychotic disorder; E87.0 Hyperosmolality and hypernatremia; N30.00 Acute cystitis without hematuria; F02.81 Dementia in other diseases classified elsewhere, unspecified severity, with behavioral disturbance; G30.9 Alzheimer's disease, unspecified; Z20.828 Contact with and (suspected) exposure to other viral communicable diseases; D64.9 Anemia, unspecified; E87.6 Hypokalemia; I25.10 Atherosclerotic heart disease of native coronary artery without angina pectoris; F41.9 Anxiety disorder, unspecified; I10 Essential (primary) hypertension; E78.5 Hyperlipidemia, unspecified; D50.9 Iron deficiency anemia, unspecified; I95.1 Orthostatic hypotension; Z79.899 Other long term (current) drug therapy